=== PATIENT | female | born 1955 | race Caucasian/White ===

== ENCOUNTER 2018-03-14 13:47 | Inpatient (IN) ==
[2018-03-14] MEDS: Magnesium Oxide 400 MG TABLET PO SCH ×2 (15:58→19:29)
[2018-03-14] MEDS: Thiamine (B-1) 100 MG TABLET PO SCH (17:58)
[2018-03-14] MEDS: *HR* Enoxaparin 60 MG/0.6 ML SYRINGE SQ SCH (17:58)
[2018-03-14] MEDS ORDERED: *HR* Warfarin 3 MG TABLET PO SCH (18:00)
[2018-03-14] MEDS ORDERED: Warfarin perPT PO PRN (18:00)
[2018-03-14] MEDS: traMADol 50 MG TABLET PO PRN (19:30)
[2018-03-15] MEDS: *HR* Enoxaparin 60 MG/0.6 ML SYRINGE SQ SCH ×2 (06:32→16:46)
[2018-03-15 07:41] LABS: Basophils # 0.1 K/mcL (0.0-0.2); Basophils % 0.9 %; Eosinophils # 0.2 K/mcL (0.0-0.6); Eosinophils % 3.1 %; Hematocrit 30.5 % (35.3-44.9); Hemoglobin 9.8 g/dL (11.5-15.4); Immature Granulocytes % 0.6 % (0-4); Lymphocytes # 1.8 K/mcL (0.6-4.6); Lymphocytes % 27.5 %; Mean Corpuscular HGB Conc 32.1 g/dL (31.6-35.5); Mean Corpuscular Hemoglobin 29.9 pg (28.0-33.3); Mean Platelet Volume 10.9 fL (9.4-12.4); Monocytes # 0.7 K/mcL (0.0-1.3); Monocytes % 10.6 %; Neutrophils # 3.7 K/mcL (1.6-8.9); Platelet Count 254 K/mcL (140-400); Red Blood Count 3.28 M/mcL (3.82-4.97); Red Cell Distribution Width 15.6 % (11.5-14.5); Segmented Neutrophils % 57.3 %
[2018-03-15 07:43] LABS: INR 1.3; Prothrombin Time 14.4 Seconds (9.4-12.1)
[2018-03-15 07:55] LABS: Alanine Aminotransferase 20 Units/L (7-52); Albumin 2.6 g/dL (3.5-5.7); Albumin/Globulin Ratio 1.2 (1.1-2.2); Alkaline Phosphatase 72 Units/L (34-104); Aspartate Amino Transferase 22 Units/L (13-39); BUN/Creatinine Ratio 15 (6-26); Bilirubin,Total 0.4 mg/dL (0.3-1.0); Blood Urea Nitrogen 9 mg/dL (8-23); Calcium 8.4 mg/dL (8.6-10.3); Carbon Dioxide 26 mEq/L (23-29); Chloride 108 mEq/L (98-107); Globulin 2.2 g/dL (2.4-3.5); Glucose 81 mg/dL (70-105); Osmolality,Calculated 290 (280-300); Potassium 3.6 mEq/L (3.5-5.1); Sodium 141 mEq/L (136-145); Total Protein 4.8 g/dL (6.4-8.9); eGFR For African Americans > 60 (> 60); eGFR For Non-African Americans > 60 (> 60)
[2018-03-15] MEDS: Lactulose Oral Soln 20 GM/30 ML UDC PO SCH (09:52)
[2018-03-15] MEDS: Nicotine 21 MG PATCH.TD24 TD SCH (09:52)
[2018-03-15] MEDS: Magnesium Oxide 400 MG TABLET PO SCH ×3 (09:53→19:31)
[2018-03-15] MEDS: Cholecalciferol (D-3) 1,000 UNIT TABLET PO SCH (09:53)
[2018-03-15] MEDS: traMADol 50 MG TABLET PO PRN ×2 (09:55→19:31)
--- NOTE | 2018-03-15 10:52 | Internal Med History&Physical ---
Date of Encounter: 03/15/18 Time of Encounter: 10:50 Assessment and Plan (1) COPD (chronic obstructive pulmonary disease) Current visit: Yes Status: Chronic No acute issues. Patient denies any dyspnea, chest discomforts or productive cough. Resp effort is relaxed. Afebrile. Will continue on current meds and bronchodialators. Coninue with PT/OT Qualifiers: COPD type: unspecified COPD Qualified Code(s): J44.9 - Chronic obstructive pulmonary disease, unspecified (2) Hypertension Current visit: No Status: Chronic Vital signs are stable. We will continue with current medications Qualifiers: Hypertension type: unspecified Qualified Code(s): I10 - Essential (primary ) hypertension (3) Altered mental status Current visit: No Status: Acute Patient is oriented and appropriate with conversation. Patient appears relaxed. Vital signs stable. No signs of alcohol withdrawal and continues on scheduled Librium. Patient to continue with physical therapy. Qualifiers: Altered mental status type: delirium Qualified Code(s): R41.0 - Disorientation, unspecified (4) NSTEMI (non-ST elevated myocardial infarction) Current visit: No Status: Acute Patient denies any chest discomforts or palpitations. Vital signs stable. We will continue with current medications. (5) LV (left ventricular) mural thrombus Current visit: No Status: Acute No acute issues. Patient continues with Coumadin, although INR is 1.3. Patient currently on weight-based Lovenox for bridging until Coumadin is therapeutic. Pharmacy to dose Coumadin. (6) CHF (congestive heart failure) Current visit: No Status: Acute No acute issues. Patient denies any dyspnea, palpitations or chest discomforts. No edema. We will continue with current medications. Qualifiers: Heart failure type: systolic Heart failure chronicity: unspecified Qualified Code(s): I50.20 - Unspecified systolic (congestive) heart failure Internal Medicine - H&P: HPI Admitted From: Intrahospital Transfer Plans for Post Hospital Care: Home History of present illness: Ms. Arrieta is a 63 year old female with past medical history of chronic alcoholism, hypertension, GERD, and recent hospitalization for electrolyte abnormalities and failure to thrive who presented to [facility] on 02/20/2018 for altered mental status. Patient was found down from a fall at home by her daughter. Patient has a history of poor medical compliance. Patient presented very confused and lethargic. She was intubated at time of admission for airway protection and for respiratory failure related to COPD/ pneumonia. Patient was also treated for suspected aspiration pneumonia and completed a 1 week course of Zosyn. She was extubated without difficulty. Diagnosed with STEMI on admission and was s/p left heart catheterization without stent placement, but she was found to have left ventricular thrombosis and was anticoagulated with Coumadin and Arixtra. However this was discontinued due to acute blood loss anemia and patient having to be transfused a total of 5 units of packed red blood cells. Upper endoscopy and colonoscopy did not demonstrate any source of active bleeding. She was started on Coumadin and bridged with heparin. She is heparin was later changed to Lovenox to continue bridging with Coumadin. [facility] to continue Lovenox Coumadin bridge to therapeutic INR is achieved. Past Med Surg Social Fam HX - Past Medical History Medical history: COPD, GERD, hyperlipidemia, hypertension, migraine Psychiatric history: anxiety, depression, other - Past Surgical History Surgical History: - Social History Smoking Status: Current every day smoker Smokeless Tobacco Status: No Alcohol use: heavy Drug use: none - Family History Mother Living Status: Hx Family Cardiac Disorders: Yes Hx Family Endocrine Disorder: Yes (uncontrolled DM) Father Living Status: Hx Family Cardiac Disorders: Yes Hx Family GI Disorders: Yes Internal Medicine - H&P: Meds Atorvastatin [Lipitor] 80 mg PO HS 11/26/17 [History] Omeprazole [PriLOSEC] 20 mg PO DAILY 11/26/17 [History] Phos-NaK [Neutra-Phos] 2 each PO BID #120 powd.pack 11/30/17 [Rx] Potassium Chloride 20 meq PO BID #60 tab.er.prt 11/30/17 [Rx] Sodium Bicarbonate 650 mg PO TID #180 tablet 11/30/17 [Rx] Lactulose 15 ml PO DAILY 02/20/18 [History] Magnesium Oxide [Mag-Ox] 400 mg PO TID 02/20/18 [History] Carvedilol [Coreg] 6.25 mg PO BIDWM tablet 03/13/18 [Rx] Chlordiazepoxide [Librium] 10 mg PO BID 5 Days #10 capsule 03/13/18 [Rx] Cholecalciferol (D-3) [Vitamin D] 1,000 unit PO DAILY tablet 03/13/18 [Rx] Enoxaparin [Lovenox] 60 mg SQ Q12HR syringe 03/13/18 [Rx] Ipratropium/Albuterol Neb [Duoneb] 3 ml IH [id number] inhsol 03/13/18 [Rx] Nicotine Patch [Nicoderm] 21 mg TD DAILY patch.td24 03/13/18 [Rx] Thiamine (B-1) [Vitamin B-1] 100 mg PO 1800 tablet 03/13/18 [Rx] Tramadol HCl [Ultram] 50 mg PO Q6-8H PRN 2 Days #8 tablet 03/13/18 [Rx] Warfarin perPT [Coumadin perPT] 1 each PO DAILY@1800 PRN each 03/13/18 [Rx] 3 Allergy/AdvReac Type Severity Reaction Status Date / Time No Known Allergies Allergy Verified 02/20/18 18:06 All Systems PM: A 10-system review of systems was performed and is negative for pertinent findings except as documented above in the HPI. - Constitutional Constitutional: no chills, no fever(s), no night sweats - EENT Eyes: no change in vision, no discharge, no pain, no photophobia Ears: no ear discharge, no ear pain, no tinnitus Nose, mouth and throat: no dysphagia, no nasal discharge, no neck pain, no sore throat - Cardiovascular Cardiovascular ROS IM: no chest pain, no diaphoresis, no dyspnea, no lightheadedness, no palpitations, no syncope - Respiratory Respiratory: no cough, no dyspnea, no wheezing, no excessive phlegm production - Gastrointestinal Gastrointestinal: no abdominal pain, no diarrhea, no hematemesis, no hematochezia, no melena, no nausea, no vomiting - Genitourinary Genitourinary: no change in urinary stream, no dysuria, no flank pain, no hematuria - Musculoskeletal Musculoskeletal ROS IM: no numbness, no tingling - Integumentary Integumentary IM: no rash, no unusual bruising - Neurological Neurological ROS: no confusion, no convulsions, no focal weakness, no numbness, no tingling, no tremor(s) - Hematologic/Lymphatic Hematologic/Lymphatic: no easy bruising - Constitutional Vitals: Temp Pulse Resp BP Pulse Ox 98.2 F 69 16 147/78 96 03/15/18 07:02 03/15/18 07:02 03/15/18 07:02 03/15/18 07:02 03/15/18 07:02 General appearance: Present: A&O X 3, pleasant - Head Head exam: Present: atraumatic, normocephalic - Eye Eye exam: Present: PERRL, conjuntiva pink, sclera anicteric Pupils: Present: PERRL - Neck Neck exam general surgery: Present: supple, trachea midline. Absent: lymphadenopathy - Respiratory Respiratory exam: Present: CTAB. Absent: accessory muscle use, rales, rhonchi, wheezes Additional comments: Diminished breath sounds to the bases, but otherwise she has been CTA. Resp effort appears relaxed. - Cardiovascular Cardiovascular exam: Present: RRR, +S1, +S2. Absent: diastolic murmur, gallop, rubs, systolic murmur - GI/Abdominal GI/Abdominal exam: Present: normal bowel sounds, soft, no peritoneal signs. Absent: distended, tenderness - Extremities Exam Extremities exam: Present: warm, radial pulses palpable and symmetrical. Absent : calf tenderness, cyanotic, pedal edema - Neurological Exam Neurological exam: Present: CN II-XII intact, oriented X3, no focal deficits. Absent: pronater drift, facial droop, speech deficit - Skin Skin exam: Present: dry, intact Internal Med - H&P Results - Labs CBC & Chem 7: 03/15/18 06:10 03/15/18 06:10 Labs: Short CBC 03/15/18 Range/Units 06:10 WBC 6.4 (4.3-11.1) K/mcL Hgb 9.8 L (11.5-15.4) g/dL Hct 30.5 L (35.3-44.9) % Plt Count 254 (140-400) K/mcL Neutrophils # 3.7 (1.6-8.9) K/mcL BMP 03/15/18 06:10 Sodium 141 Potassium 3.6 Chloride 108 H Carbon Dioxide 26 BUN 9 Creatinine 0.59 L Glucose 81 Calcium 8.4 L Liver Function 03/15/18 Range/Units 06:10 Total Bilirubin 0.4 (0.3-1.0) mg/dL AST 22 (13-39) Units/L ALT 20 (7-52) Units/L Alkaline Phosphatase 72 (34-104) Units/L Albumin 2.6 L (3.5-5.7) g/dL
[2018-03-15] MEDS: Thiamine (B-1) 100 MG TABLET PO SCH (16:47)
[2018-03-15] MEDS ORDERED: *HR* Warfarin 4 MG TABLET PO SCH (18:00)
[2018-03-16] MEDS: *HR* Enoxaparin 60 MG/0.6 ML SYRINGE SQ SCH ×2 (05:34→17:18)
[2018-03-16 06:25] LABS: INR 1.6; Prothrombin Time 16.9 Seconds (9.4-12.1)
[2018-03-16] MEDS: Magnesium Oxide 400 MG TABLET PO SCH ×3 (08:55→21:19)
[2018-03-16] MEDS: Lactulose Oral Soln 20 GM/30 ML UDC PO SCH (08:55)
[2018-03-16] MEDS: Cholecalciferol (D-3) 1,000 UNIT TABLET PO SCH (08:55)
[2018-03-16] MEDS: Nicotine 21 MG PATCH.TD24 TD SCH (08:56)
--- NOTE | 2018-03-16 10:17 | Internal Med Progress Note ---
Date of Encounter: 03/16/18 Time of Encounter: 10:15 - Assessment and plan (1) COPD (chronic obstructive pulmonary disease) Current Visit: Yes Status: Chronic Assessment and plan: baseline breathing no acute issues at the present time stable Qualifiers: COPD type: unspecified COPD Qualified Code(s): J44.9 - Chronic obstructive pulmonary disease, unspecified (2) Hypertension Current Visit: No Status: Chronic Assessment and plan: No new change stable Continue present management Qualifiers: Hypertension type: unspecified Qualified Code(s): I10 - Essential (primary ) hypertension (3) NSTEMI (non-ST elevated myocardial infarction) Current Visit: No Status: Acute Assessment and plan: No chest pain at the present time She is on meds stable no chest pain or SOB . She still feels weak (4) Mural thrombus of heart Current Visit: No Status: Acute Assessment and plan: On warfarin and bridge therapy INR still low give increase dose of 7.5 mg today and then 4.5 mg every day on Lovenox causing some pain on injection site (5) CHF (congestive heart failure) Current Visit: No Status: Acute Assessment and plan: on beta edre and other meds she seems to be stable at the present time watch for slat , increase ambulation Stable as far symptoms of SOB is concerned Qualifiers: Heart failure type: systolic Heart failure chronicity: unspecified Qualified Code(s): I50.20 - Unspecified systolic (congestive) heart failure - Subjective Interval history: pt seen in dinning room no acute issues talkative and alert oriented . some complains on pain on his left abdomen site for injections . She denies any chest pain SOB cough fever or chills no weakness in her arms or legs she is using wheel chair as she feels weak . No bleeding - Constitutional Vitals: Temp Pulse Resp BP Pulse Ox 98.2 F 79 18 124/72 97 03/16/18 08:13 03/16/18 08:13 03/16/18 08:13 03/16/18 08:13 03/16/18 08:13 General appearance: Present: A&O X 3, pleasant, no acute distress - Head Head exam: Present: atraumatic - Eye Eye exam: Present: EOMI, PERRL. Absent: periorbital swelling, scleral icterus, conjuntiva pink, sclera anicteric - Neck Neck exam general surgery: Present: full ROM, supple. Absent: tenderness, nuchal rigidity - Respiratory Respiratory exam: Present: CTAB. Absent: accessory muscle use, chest wall tenderness, decreased breath sounds, respiratory distress, rhonchi, stridor, wheezes, tachypnea - Cardiovascular Cardiovascular exam: Present: RRR, +S1. Absent: diastolic murmur, irregular rhythm, JVD, systolic murmur - GI/Abdominal GI/Abdominal exam: Present: normal bowel sounds, soft. Absent: distended, firm , guarding, mass, pulsatile mass, rebound, rigid Additional comments: mild injection site bruises and pain - Extremities Exam Extremities exam: Present: full ROM. Absent: mottling, tenderness, warm - Neurological Exam Neurological exam: Present: CN II-XII intact, oriented X3, strengths equal and symetr throughout. Absent: no focal deficits, pronater drift, facial droop, speech deficit Internal Medicine: Result - Labs CBC & Chem 7: 03/15/18 06:10 03/15/18 06:10 - ABG Interpretation ABG results: PT/INR, D-dimer PT 16.9 Seconds (9.4-12.1) H 03/16/18 05:50 Consult Discharge Plan - Plan Referrals: Chiquita Colunga, [employer] [Primary Care Provider] -
[2018-03-16] MEDS: Thiamine (B-1) 100 MG TABLET PO SCH (17:17)
[2018-03-16] MEDS ORDERED: *HR* Warfarin 7.5 MG TABLET PO ONE (18:00)
[2018-03-16] MEDS: traMADol 50 MG TABLET PO PRN (21:18)
[2018-03-17] MEDS: *HR* Enoxaparin 60 MG/0.6 ML SYRINGE SQ SCH ×2 (04:25→16:59)
[2018-03-17 05:05] LABS: Prothrombin Time 21.8 Seconds (9.4-12.1)
[2018-03-17] MEDS: Cholecalciferol (D-3) 1,000 UNIT TABLET PO SCH (08:12)
[2018-03-17] MEDS: Magnesium Oxide 400 MG TABLET PO SCH ×3 (08:12→19:30)
[2018-03-17] MEDS: Lactulose Oral Soln 20 GM/30 ML UDC PO SCH (08:13)
[2018-03-17] MEDS: Nicotine 21 MG PATCH.TD24 TD SCH (08:13)
--- NOTE | 2018-03-17 09:35 | Internal Med Progress Note ---
Date of Encounter: 03/17/18 Time of Encounter: 09:33 - Assessment and plan (1) COPD (chronic obstructive pulmonary disease) Current Visit: Yes Status: Chronic Assessment and plan: sable no new issues not using any oxygen at the present . Continue to follow Qualifiers: COPD type: unspecified COPD Qualified Code(s): J44.9 - Chronic obstructive pulmonary disease, unspecified (2) Hypertension Current Visit: No Status: Chronic Assessment and plan: stable no new change Qualifiers: Hypertension type: unspecified Qualified Code(s): I10 - Essential (primary ) hypertension (3) NSTEMI (non-ST elevated myocardial infarction) Current Visit: No Status: Acute Assessment and plan: stable no chest pain on meds (4) Mural thrombus of heart Current Visit: No Status: Acute Assessment and plan: INR is 2 today bridge therapy at the present time adjust dose INR tomorrow and then d/c Lovenox Start 4.5 mg Warfarin q evening Also order mg levels she iis on Mgoxide (5) CHF (congestive heart failure) Current Visit: No Status: Acute Assessment and plan: stable CHF she is able to lay down flat . continue to monitor Qualifiers: Heart failure type: systolic Heart failure chronicity: unspecified Qualified Code(s): I50.20 - Unspecified systolic (congestive) heart failure - Subjective Interval history: pt no new issues today feels well no chest pain no SOB or bleeding or any other issues she feels good still weak and difficulty in getting up - Constitutional Vitals: Temp Pulse Resp BP Pulse Ox 98.4 F 74 16 121/68 95 03/17/18 07:24 03/17/18 07:24 03/17/18 07:24 03/17/18 07:24 03/17/18 07:24 General appearance: Present: A&O X 3, pleasant, no acute distress - Head Head exam: Present: atraumatic - Eye Eye exam: Present: EOMI, PERRL. Absent: scleral icterus, conjuntiva pink, sclera anicteric - Neck Neck exam general surgery: Present: supple. Absent: tenderness, nuchal rigidity - Respiratory Respiratory exam: Present: CTAB. Absent: accessory muscle use, chest wall tenderness, rales, respiratory distress, rhonchi, stridor, tachypnea - Cardiovascular Cardiovascular exam: Present: RRR, +S1, +S2. Absent: gallop, irregular rhythm, JVD, systolic murmur, tachycardia - GI/Abdominal GI/Abdominal exam: Present: normal bowel sounds, pulsatile mass, soft. Absent: firm, rebound, rigid - Extremities Exam Extremities exam: Present: pedal edema Additional comments: minimal both side more on the right then left - Neurological Exam Neurological exam: Present: CN II-XII intact, oriented X3, reflexes normal, strengths equal and symetr throughout. Absent: facial droop, speech deficit Internal Medicine: Result - Labs CBC & Chem 7: 03/15/18 06:10 03/15/18 06:10 - ABG Interpretation ABG results: PT/INR, D-dimer PT 21.8 Seconds (9.4-12.1) H 03/17/18 04:38 Consult Discharge Plan - Plan Referrals: Chiquita Colunga, [employer] [Primary Care Provider] -
[2018-03-17] MEDS: Thiamine (B-1) 100 MG TABLET PO SCH (16:58)
[2018-03-17] MEDS ORDERED: *HR* Warfarin 4 MG TABLET PO SCH (18:00)
[2018-03-17] MEDS: traMADol 50 MG TABLET PO PRN (19:30)
[2018-03-18] MEDS: *HR* Enoxaparin 60 MG/0.6 ML SYRINGE SQ SCH (05:11)
[2018-03-18 08:59] LABS: Prothrombin Time 32.6 Seconds (9.4-12.1)
--- NOTE | 2018-03-18 09:44 | Internal Med Progress Note ---
Date of Encounter: 03/18/18 Time of Encounter: 09:42 - Assessment and plan (1) COPD (chronic obstructive pulmonary disease) Current Visit: Yes Status: Chronic Assessment and plan: stable no new changes continue to watch Qualifiers: COPD type: unspecified COPD Qualified Code(s): J44.9 - Chronic obstructive pulmonary disease, unspecified (2) Hypertension Current Visit: No Status: Chronic Assessment and plan: stable no new change in meds continue to follow Qualifiers: Hypertension type: unspecified Qualified Code(s): I10 - Essential (primary ) hypertension (3) NSTEMI (non-ST elevated myocardial infarction) Current Visit: No Status: Acute Assessment and plan: stable no chest pain getting her rehab now still somewhat weak (4) Mural thrombus of heart Current Visit: No Status: Acute Assessment and plan: INR is 3 today . stop her Lovenox and decrease her Warfarin to 4 again and followup INR clinically stable (5) CHF (congestive heart failure) Current Visit: No Status: Acute Assessment and plan: stable no new change she is able to lay down flat no JVD Qualifiers: Heart failure type: systolic Heart failure chronicity: unspecified Qualified Code(s): I50.20 - Unspecified systolic (congestive) heart failure (6) Hypomagnesemia Current Visit: No Status: Acute Assessment and plan: Level are still low she has been on oral meds . Give one time IV 2 gm and followup Labs stable overall - Subjective Interval history: pt no new issues today feels well no chest pain no SOB or bleeding or any other issues she feels good still weak and difficulty in getting up Still has complains of injection site pain and bumps .No other complains - Constitutional Vitals: Temp Pulse Resp BP Pulse Ox 98.2 F 65 12 137/62 96 03/18/18 08:06 03/18/18 08:06 03/18/18 08:06 03/18/18 08:06 03/18/18 08:06 General appearance: Present: A&O X 3, pleasant, no acute distress - Head Head exam: Present: atraumatic - Eye Eye exam: Present: EOMI, PERRL. Absent: scleral icterus, conjuntiva pink, sclera anicteric - Neck Neck exam general surgery: Present: full ROM, supple. Absent: tenderness, nuchal rigidity - Respiratory Respiratory exam: Present: CTAB. Absent: chest wall tenderness, respiratory distress, rhonchi, stridor, wheezes, tachypnea - Cardiovascular Cardiovascular exam: Present: RRR, +S1, +S2. Absent: gallop, irregular rhythm, JVD, systolic murmur, tachycardia - GI/Abdominal GI/Abdominal exam: Present: normal bowel sounds, soft, tenderness. Absent: distended, firm, guarding, pulsatile mass, rebound, rigid Additional comments: on the injection site on left - Extremities Exam Extremities exam: Absent: pedal edema, tenderness - Neurological Exam Neurological exam: Present: CN II-XII intact, oriented X3, reflexes normal, no focal deficits. Absent: altered, pronater drift, facial droop, speech deficit Internal Medicine: Result - Labs CBC & Chem 7: 03/15/18 06:10 03/15/18 06:10 - ABG Interpretation ABG results: PT/INR, D-dimer PT 21.8 Seconds (9.4-12.1) H 03/17/18 04:38 Consult Discharge Plan - Plan Referrals: Chiquita Colunga, [employer] [Primary Care Provider] -
[2018-03-18] MEDS: Cholecalciferol (D-3) 1,000 UNIT TABLET PO SCH (10:27)
[2018-03-18] MEDS: traMADol 50 MG TABLET PO PRN ×3 (10:27→22:08)
[2018-03-18] MEDS: Magnesium Oxide 400 MG TABLET PO SCH ×3 (10:27→22:07)
[2018-03-18] MEDS: Lactulose Oral Soln 20 GM/30 ML UDC PO SCH (10:28)
[2018-03-18] MEDS: Nicotine 21 MG PATCH.TD24 TD SCH (10:29)
[2018-03-18] MEDS ORDERED: *HR* OxyCODONE Immed Rel 5 MG TABLET PO ONE (17:36)
[2018-03-18] MEDS: Thiamine (B-1) 100 MG TABLET PO SCH (18:48)
[2018-03-18] MEDS: *HR* Warfarin 2 MG TABLET PO SCH (22:05)
[2018-03-19 05:45] LABS: INR 1.9; Prothrombin Time 20.4 Seconds (9.4-12.1)
[2018-03-19] MEDS: Cholecalciferol (D-3) 1,000 UNIT TABLET PO SCH (09:50)
[2018-03-19] MEDS: Nicotine 21 MG PATCH.TD24 TD SCH (09:50)
[2018-03-19] MEDS: Magnesium Oxide 400 MG TABLET PO SCH ×3 (09:51→21:55)
[2018-03-19] MEDS: traMADol 50 MG TABLET PO PRN ×2 (09:51→21:55)
[2018-03-19] MEDS: Lactulose Oral Soln 20 GM/30 ML UDC PO SCH (09:51)
--- NOTE | 2018-03-19 10:19 | Internal Med Progress Note ---
Date of Encounter: 03/19/18 Time of Encounter: 10:17 - Assessment and plan (1) COPD (chronic obstructive pulmonary disease) Current Visit: Yes Status: Chronic Assessment and plan: Clinically stable. We will continue home regimen and follow. Qualifiers: COPD type: unspecified COPD Qualified Code(s): J44.9 - Chronic obstructive pulmonary disease, unspecified (2) Acute blood loss anemia Current Visit: No Status: Acute Assessment and plan: Clinically stable. We will continue home regimen and follow. (3) DVT prophylaxis Current Visit: No Status: Acute Assessment and plan: We will continue her on Coumadin. However, she is borderline subtherapeutic, today. Will resume Coumadin and may need enoxaparin. Since she has had hematoma from same will avoid today, if possible. Reviewed negative CT and etiology of abdominal pain with her. (4) Hypomagnesemia Current Visit: No Status: Acute Assessment and plan: Resolved. Will follow in the future. (5) Hypertension Current Visit: No Status: Chronic Assessment and plan: Clinically stable. We will continue home regimen and follow. Qualifiers: Hypertension type: unspecified Qualified Code(s): I10 - Essential (primary ) hypertension (6) Tobacco dependence Current Visit: No Status: Chronic Assessment and plan: Doing fine currently. Will need to encourage patient not to smoke, upon discharge. (7) Pruritus Current Visit: Yes Status: Acute Assessment and plan: Etiology is undetermined. There is no sign of liver failure. We will follow clinically and use Benadryl, when necessary. - Subjective Interval history: Patient notes itching and scratching but is unsure as to why. This is been going on for several days. Denies rash or exposure. She is not concerned about abdominal pain and dose it is just from "the shots." Patient has no complaint of chest discomfort, dyspnea, orthopnea, palpitations, nausea or vomiting, constipation or diarrhea, other changes in bowel habits, difficulty with urination, rash or itching, or other new complaints, except as mentioned above. Review of systems is otherwise negative. - Constitutional Vitals: Temp Pulse Resp BP Pulse Ox 97.9 F 66 16 126/60 93 03/19/18 06:42 03/19/18 06:42 03/19/18 06:42 03/19/18 06:42 03/19/18 06:42 General appearance: Present: pleasant Exam: Examination: (Except as mentioned above): General: In no apparent distress. Alert and oriented 3. Nondiaphoretic. Head: Atraumatic and normocephalic. Respiratory: No use of accessory muscles. Lungs are clear throughout. Normal airflow. Cardiovascular: Regular rate and rhythm without murmur appreciated. Abdomen: Bowel sounds are normal. No hepatosplenomegaly mass or tenderness except hematoma/ecchymosis as before. Obese and therefore difficult to palpate deeply. Patient is examined upright in chair and this also limits exam. Extremities: No cyanosis clubbing or edema. Skin: Warm and non-diaphoretic with no new lesions noted. Internal Medicine: Result - Labs CBC & Chem 7: 03/15/18 06:10 03/15/18 06:10 - ABG Interpretation ABG results: PT/INR, D-dimer PT 20.4 Seconds (9.4-12.1) H 03/19/18 05:10 - Impressions Impressions Abdomen/Pelvis CT 03/18/18 17:34 IMPRESSION: No acute intra- abdominal or intrapelvic findings to account for patient's pain. Rounded densities within the subcutaneous fat of the anterior abdominal wall as well as a few foci of gas also noted in the subcutaneous fat. Findings may be related to injection of medication. More prominent rounded densities within the subcutaneous fat left anterior abdominal wall, new. These contain fluid fluid levels and may represent small hematoma. Stranding again noted right groin with rounded increased densities. These appear increased in size since the previous exam. While findings may be related to adenopathy, degree of increase in short interval of time suggests that this may also represent hematoma. If there is history of procedure in the right groin or concern for vascular injury recommend further evaluation with CT contrast enhanced study. Simple appearing 5.1 x 4.6 cm left ovarian cyst, not significantly changed. Recommend further evaluation with nonemergent ultrasound and surgical consultation. D/ / Tayler Liang MD / Tayler Liang MD Interpreting Provider: Tayler Liang MD Consult Discharge Plan - Plan Referrals: Chiquita Colunga, [employer] [Primary Care Provider] -
[2018-03-19] MEDS: *HR* Warfarin 2 MG TABLET PO SCH (17:44)
[2018-03-19] MEDS: Thiamine (B-1) 100 MG TABLET PO SCH (17:45)
[2018-03-20 07:26] LABS: INR 1.5; Prothrombin Time 16.6 Seconds (9.4-12.1)
[2018-03-20] MEDS: Cholecalciferol (D-3) 1,000 UNIT TABLET PO SCH (08:58)
[2018-03-20] MEDS: traMADol 50 MG TABLET PO PRN ×2 (08:58→19:43)
[2018-03-20] MEDS: Lactulose Oral Soln 20 GM/30 ML UDC PO SCH (08:58)
[2018-03-20] MEDS: Nicotine 21 MG PATCH.TD24 TD SCH (08:59)
[2018-03-20] MEDS: Magnesium Oxide 400 MG TABLET PO SCH ×3 (08:59→19:43)
--- NOTE | 2018-03-20 10:26 | Internal Med Progress Note ---
Date of Encounter: 03/20/18 Time of Encounter: 10:20 - Assessment and plan (1) Physical deconditioning Current Visit: Yes Status: Acute Assessment and plan: Continue PT\OT. Will follow progress. (2) COPD (chronic obstructive pulmonary disease) Current Visit: Yes Status: Chronic Assessment and plan: Controlled. Continue inhaled meds. Qualifiers: COPD type: unspecified COPD Qualified Code(s): J44.9 - Chronic obstructive pulmonary disease, unspecified (3) Tobacco dependence Current Visit: Yes Status: Chronic Assessment and plan: Stable. Will educate plan for smoking cessation prior to discharge. (4) Hypertension Current Visit: Yes Status: Chronic Assessment and plan: Controlled with current medication. Monitor blood pressure. Qualifiers: Hypertension type: unspecified Qualified Code(s): I10 - Essential (primary ) hypertension (5) Acute blood loss anemia Current Visit: Yes Status: Acute Assessment and plan: CBC ordered today. Will follow for results. (6) Fatigue Current Visit: Yes Status: Acute Assessment and plan: CBC in BMP ordered. Will follow for results. Qualifiers: Fatigue type: unspecified Qualified Code(s): R53.83 - Other fatigue - Time Spent With Patient 25 - 35 minutes - Subjective Interval history: participating well with therapy. ambulating with walker. c/o fatigue, discussed ordering labwork due to recent anemia and transfusion. denies any pain, fever, chills, NVD, SOB or chest pain. - Constitutional Vitals: Temp Pulse Resp BP Pulse Ox 98.4 F 75 16 110/58 95 03/20/18 07:46 03/20/18 07:46 03/20/18 07:46 03/20/18 07:46 03/20/18 07:46 General appearance: Present: cooperative, A&O X 3, pleasant, no acute distress, underweight, answers questions appropriately - Head Head exam: Present: atraumatic, normocephalic - Eye Eye exam: Present: PERRL, conjuntiva pink, sclera anicteric Pupils: Present: PERRL - Neck Neck exam general surgery: Present: supple, trachea midline. Absent: lymphadenopathy - Respiratory Respiratory exam: Present: CTAB. Absent: accessory muscle use, rales, rhonchi, wheezes - Cardiovascular Cardiovascular exam: Present: RRR, +S1, +S2. Absent: diastolic murmur, gallop, rubs, systolic murmur - GI/Abdominal GI/Abdominal exam: Present: normal bowel sounds, soft, no peritoneal signs. Absent: distended, tenderness - Extremities Exam Extremities exam: Present: warm, radial pulses palpable and symmetrical. Absent : calf tenderness, cyanotic, pedal edema - Neurological Exam Neurological exam: Present: CN II-XII intact, oriented X3, no focal deficits. Absent: pronater drift, facial droop, speech deficit - Skin Skin exam: Present: dry, intact Internal Medicine: Result - Labs CBC & Chem 7: 03/15/18 06:10 03/15/18 06:10 - ABG Interpretation ABG results: PT/INR, D-dimer PT 16.6 Seconds (9.4-12.1) H 03/20/18 06:31 Consult Discharge Plan - Plan Referrals: Chiquita Colunga, REGIONAL DIRECTOR [Primary Care Provider] - Figueroa Sanchez [Partnered Physician] - 04/18/18 8:00 am
[2018-03-20 11:27] LABS: Basophils # 0.1 K/mcL (0.0-0.2); Basophils % 0.6 %; Eosinophils # 0.4 K/mcL (0.0-0.6); Eosinophils % 3.6 %; Hematocrit 32.4 % (35.3-44.9); Hemoglobin 10.3 g/dL (11.5-15.4); Immature Granulocytes % 1.1 % (0-4); Lymphocytes # 1.6 K/mcL (0.6-4.6); Lymphocytes % 15.8 %; Mean Corpuscular HGB Conc 31.8 g/dL (31.6-35.5); Mean Corpuscular Hemoglobin 30.2 pg (28.0-33.3); Mean Platelet Volume 10.5 fL (9.4-12.4); Monocytes # 0.9 K/mcL (0.0-1.3); Monocytes % 8.8 %; Platelet Count 233 K/mcL (140-400); Red Blood Count 3.41 M/mcL (3.82-4.97); Red Cell Distribution Width 15.9 % (11.5-14.5); Segmented Neutrophils % 70.1 %
[2018-03-20 11:33] LABS: Neutrophils # 6.9 K/mcL (1.6-8.9)
[2018-03-20 11:50] LABS: BUN/Creatinine Ratio 10 (6-26); Blood Urea Nitrogen 8 mg/dL (8-23); Calcium 8.7 mg/dL (8.6-10.3); Carbon Dioxide 28 mEq/L (23-29); Chloride 101 mEq/L (98-107); Glucose 92 mg/dL (70-105); Osmolality,Calculated 278 (280-300); Potassium 4.8 mEq/L (3.5-5.1); Sodium 135 mEq/L (136-145); eGFR For African Americans > 60 (> 60); eGFR For Non-African Americans > 60 (> 60)
[2018-03-20] MEDS: *HR* Warfarin 2 MG TABLET PO SCH (17:24)
[2018-03-20] MEDS: Thiamine (B-1) 100 MG TABLET PO SCH (17:24)
[2018-03-21 05:41] LABS: INR 1.5; Prothrombin Time 16.5 Seconds (9.4-12.1)
[2018-03-21] MEDS: traMADol 50 MG TABLET PO PRN ×2 (09:19→20:33)
--- NOTE | 2018-03-21 09:44 | Internal Med Progress Note ---
Date of Encounter: 03/21/18 Time of Encounter: 09:41 - Assessment and plan (1) COPD (chronic obstructive pulmonary disease) Current Visit: Yes Status: Chronic Assessment and plan: This seems to be stable, clinically. Will follow, given her symptoms which might be respiratory. Qualifiers: COPD type: unspecified COPD Qualified Code(s): J44.9 - Chronic obstructive pulmonary disease, unspecified (2) Acute blood loss anemia Current Visit: Yes Status: Acute Assessment and plan: Clinically stable. We will follow. (3) DVT prophylaxis Current Visit: No Status: Acute Assessment and plan: She remains subtherapeutic. I thought I gave a verbal order for Lovenox beginning yesterday. This was not done. This was resumed today. I explained patient, as above. We will continue on Coumadin which was held over the weekend. (4) Hypomagnesemia Current Visit: No Status: Acute Assessment and plan: Resolved. Will follow in the future. (5) Hypertension Current Visit: Yes Status: Chronic Assessment and plan: Clinically stable. We will continue home regimen and follow. Qualifiers: Hypertension type: unspecified Qualified Code(s): I10 - Essential (primary ) hypertension (6) Tobacco dependence Current Visit: Yes Status: Chronic Assessment and plan: Doing fine currently. Will need to encourage patient not to smoke, upon discharge. However, nursing notes that she ask therapy staff for a trip outside for a cigarette, yesterday. (7) Pruritus Current Visit: Yes Status: Acute Assessment and plan: Improved? We will continue to follow. - Subjective Interval history: Patient examined upright in chair, during therapy. She states she is not feeling well. She has had some cough in her throat is bothering her this morning. I explained to her that she needs to have Lovenox even though she does not want this because of abdominal pain. I explained the prophylaxis for blood clot in her lung, etc. Patient has no complaint of chest discomfort, dyspnea, orthopnea, palpitations, nausea or vomiting, constipation or diarrhea, other changes in bowel habits, difficulty with urination, rash or itching, or other new complaints, except as mentioned above. Review of systems is otherwise negative. - Constitutional Vitals: Temp Pulse Resp BP Pulse Ox 98.4 F 78 16 97/55 97 03/20/18 19:14 03/20/18 19:14 03/20/18 19:14 03/20/18 19:14 03/20/18 19:14 General appearance: Present: cooperative, pleasant, underweight, answers questions appropriately Exam: See comments above. Examination: (Except as mentioned above): General: In no apparent distress. Alert and oriented 3. Nondiaphoretic. Head: Atraumatic and normocephalic. Throat: Without dementia or oral lesion or abnormality. Dentition is also unremarkable. Neck: Supple without thyromegaly or adenopathy. Respiratory: No use of accessory muscles. Lungs are clear throughout. Normal airflow. Cardiovascular: Regular rate and rhythm without murmur appreciated. Abdomen: Bowel sounds are normal. No hepatosplenomegaly mass or tenderness appreciated. Obese and therefore difficult to palpate deeply.Patient is examined upright in chair and this also limits exam. Extremities: No cyanosis clubbing or edema. Skin: Warm and non-diaphoretic with no new lesions noted. Internal Medicine: Result - Labs CBC & Chem 7: 03/20/18 11:19 03/20/18 11:19 Labs: Short CBC 03/20/18 Range/Units 11:19 WBC 9.9 D (4.3-11.1) K/mcL Hgb 10.3 L (11.5-15.4) g/dL Hct 32.4 L (35.3-44.9) % Plt Count 233 (140-400) K/mcL Neutrophils # 6.9 (1.6-8.9) K/mcL BMP 03/20/18 11:19 Sodium 135 L Potassium 4.8 Chloride 101 Carbon Dioxide 28 BUN 8 Creatinine 0.77 Glucose 92 Calcium 8.7 - ABG Interpretation ABG results: PT/INR, D-dimer PT 16.5 Seconds (9.4-12.1) H 03/21/18 04:45 - Impressions Impressions Videofluoroscopic Swallow 03/20/18 11:46 IMPRESSION: Swallowing mechanism grossly within normal limits without evidence of aspiration. Please see separate speech pathology report for full discussion of findings and recommendations. D/ / Yadiel Acevedo MD / Yadiel Acevedo MD Interpreting Provider: Yadiel Acevedo MD Consult Discharge Plan - Plan Referrals: Chiquita Colunga, ALEXIS [Primary Care Provider] - Figueroa Sanchez [Partnered Physician] - 04/18/18 8:00 am
[2018-03-21] MEDS: Magnesium Oxide 400 MG TABLET PO SCH ×3 (09:59→20:32)
[2018-03-21] MEDS: Lactulose Oral Soln 20 GM/30 ML UDC PO SCH (10:00)
[2018-03-21] MEDS: Nicotine 21 MG PATCH.TD24 TD SCH (10:00)
[2018-03-21] MEDS: Cholecalciferol (D-3) 1,000 UNIT TABLET PO SCH (10:00)
[2018-03-21] MEDS: *HR* Enoxaparin 60 MG/0.6 ML SYRINGE SQ SCH (17:18)
[2018-03-21] MEDS: Thiamine (B-1) 100 MG TABLET PO SCH (17:18)
[2018-03-21] MEDS ORDERED: Warfarin perPT PO SCH (18:00)
[2018-03-21] MEDS ORDERED: *HR* Warfarin 4 MG TABLET PO ONE (18:00)
[2018-03-21 18:58] LABS: Basophils # 0.1 K/mcL (0.0-0.2); Basophils % 0.6 %; Eosinophils # 0.5 K/mcL (0.0-0.6); Eosinophils % 4.5 %; Hematocrit 31.1 % (35.3-44.9); Immature Granulocytes % 0.7 % (0-4); Lymphocytes # 1.9 K/mcL (0.6-4.6); Mean Corpuscular HGB Conc 32.2 g/dL (31.6-35.5); Mean Corpuscular Volume 93.4 fL (83.0-100.0); Mean Platelet Volume 10.1 fL (9.4-12.4); Monocytes # 0.9 K/mcL (0.0-1.3); Monocytes % 8.8 %; Neutrophils # 6.8 K/mcL (1.6-8.9); Platelet Count 228 K/mcL (140-400); Red Blood Count 3.33 M/mcL (3.82-4.97); Red Cell Distribution Width 15.7 % (11.5-14.5); Segmented Neutrophils % 66.4 %
[2018-03-21 19:16] LABS: BUN/Creatinine Ratio 13 (6-26); Blood Urea Nitrogen 9 mg/dL (8-23); Carbon Dioxide 25 mEq/L (23-29); Chloride 102 mEq/L (98-107); Glucose 101 mg/dL (70-105); Osmolality,Calculated 275 (280-300); Potassium 4.5 mEq/L (3.5-5.1); Sodium 133 mEq/L (136-145); eGFR For African Americans > 60 (> 60); eGFR For Non-African Americans > 60 (> 60)
[2018-03-22] MEDS: *HR* Enoxaparin 60 MG/0.6 ML SYRINGE SQ SCH ×3 (00:25→23:00)
[2018-03-22] MEDS ORDERED: *HR* Enoxaparin 60 MG/0.6 ML SYRINGE SQ SCH (06:00)
[2018-03-22] MEDS: Lactulose Oral Soln 20 GM/30 ML UDC PO SCH (08:33)
[2018-03-22] MEDS: Nicotine 21 MG PATCH.TD24 TD SCH (08:33)
[2018-03-22] MEDS: Cholecalciferol (D-3) 1,000 UNIT TABLET PO SCH (08:33)
[2018-03-22] MEDS: Magnesium Oxide 400 MG TABLET PO SCH ×3 (08:34→20:10)
[2018-03-22 08:38] LABS: INR 1.6; Prothrombin Time 17.1 Seconds (9.4-12.1)
--- NOTE | 2018-03-22 10:44 | Internal Med Progress Note ---
Date of Encounter: 03/22/18 Time of Encounter: 10:42 - Assessment and plan (1) Chest pain Current Visit: Yes Status: Acute Assessment and plan: Patient reportedly had an episode of chest pain yesterday early evening which per nursing was described as substernal. Patient is a poor historian due to dementia element. Patient has had serial troponins and EKG obtain. Troponins have been negative. Patient's first EKG showed inverted T waves in multiple leads. Patient has had a recent history of a non-STEMI ND during her hospitalization in early February. Patient had a cardiac catheter done by cardiology with the showmoderate disease to LAD. Patient also at that time diagnosed with a left ventricular thrombus. Patient currently appears relaxed and denies any chest discomforts or palpitations. Repeat EKG continued to show inverted T waves in multiple inferior and anterolateral leads. Will continue on current anticoagulation and continue to monitor. Will continue with current PT/OT. Qualifiers: Chest pain type: unspecified Qualified Code(s): R07.9 - Chest pain, unspecified (2) COPD (chronic obstructive pulmonary disease) Current Visit: Yes Status: Chronic Assessment and plan: No acute issues. Patient's lungs are clear to auscultation. Patient continues without complaints of dyspnea or productive cough. We will continue with current medications and bronchodilators. Qualifiers: COPD type: unspecified COPD Qualified Code(s): J44.9 - Chronic obstructive pulmonary disease, unspecified (3) Hypertension Current Visit: Yes Status: Chronic Assessment and plan: Vital signs remained stable. We will continue with current medications. Qualifiers: Hypertension type: unspecified Qualified Code(s): I10 - Essential (primary ) hypertension (4) Altered mental status Current Visit: No Status: Acute Assessment and plan: Patient continues with mild dementia, although no behaviors have been reported per nursing. Patient appears appropriate with conversation but continues to have difficulty answering complex questions. Poor short-term memory recall Qualifiers: Altered mental status type: delirium Qualified Code(s): R41.0 - Disorientation, unspecified (5) LV (left ventricular) mural thrombus Current Visit: No Status: Acute Assessment and plan: Patient continues on anticoagulation. No acute issues. - Time Spent With Patient less than 15 minutes - Subjective Interval history: Recent currently appears relaxed and denies any discomforts or shortness of breath. Patient denies any palpitations or chest pain. Patient's poor historian and states that she does not remember her treatment last evening when she had complaints of chest pain. States uncertain about details describing last evening's event of chest pain - Constitutional Vitals: Temp Pulse Resp BP Pulse Ox 97.9 F 77 16 106/61 98 03/22/18 07:32 03/22/18 07:32 03/22/18 07:32 03/22/18 07:32 03/22/18 07:32 General appearance: Present: cooperative, A&O X 3, pleasant, underweight, answers questions appropriately Exam: Patient noted to have some difficulty in answering complex questions. - Head Head exam: Present: atraumatic, normocephalic - Eye Eye exam: Present: PERRL, conjuntiva pink, sclera anicteric Pupils: Present: PERRL - Neck Neck exam general surgery: Present: supple, trachea midline. Absent: lymphadenopathy - Respiratory Respiratory exam: Present: CTAB. Absent: accessory muscle use, rales, rhonchi, wheezes - Cardiovascular Cardiovascular exam: Present: RRR, +S1, +S2. Absent: diastolic murmur, gallop, rubs, systolic murmur - GI/Abdominal GI/Abdominal exam: Present: normal bowel sounds, soft, no peritoneal signs. Absent: distended, tenderness - Extremities Exam Extremities exam: Present: warm, radial pulses palpable and symmetrical. Absent : calf tenderness, cyanotic, pedal edema - Neurological Exam Neurological exam: Present: CN II-XII intact, oriented X3, no focal deficits. Absent: pronater drift, facial droop, speech deficit - Skin Skin exam: Present: dry, intact Internal Medicine: Result - Labs CBC & Chem 7: 03/21/18 18:52 03/21/18 18:52 Labs: Short CBC 03/21/18 Range/Units 18:52 WBC 10.2 (4.3-11.1) K/mcL Hgb 10.0 L (11.5-15.4) g/dL Hct 31.1 L (35.3-44.9) % Plt Count 228 (140-400) K/mcL Neutrophils # 6.8 (1.6-8.9) K/mcL BMP 03/21/18 18:52 Sodium 133 L Potassium 4.5 Chloride 102 Carbon Dioxide 25 BUN 9 Creatinine 0.71 Glucose 101 Calcium 9.0 Cardiac Enzymes 03/21/18 03/22/18 03/22/18 Range/Units 18:34 00:47 06:30 Troponin I < 0.03 < 0.03 < 0.03 (< 0.04) ng/mL - ABG Interpretation ABG results: PT/INR, D-dimer PT 17.1 Seconds (9.4-12.1) H 03/22/18 06:30 Consult Discharge Plan - Plan Referrals: Chiquita Colunga, ALEXIS [Primary Care Provider] - Figueroa Sanchez [Partnered Physician] - 04/18/18 8:00 am
[2018-03-22] MEDS: Thiamine (B-1) 100 MG TABLET PO SCH (17:05)
[2018-03-22] MEDS ORDERED: *HR* Warfarin 4 MG TABLET PO ONE (18:00)
[2018-03-22] MEDS: traMADol 50 MG TABLET PO PRN (20:10)
[2018-03-23 05:57] LABS: INR 1.6; Prothrombin Time 17.5 Seconds (9.4-12.1)
[2018-03-23] MEDS: Nicotine 21 MG PATCH.TD24 TD SCH (09:08)
[2018-03-23] MEDS: *HR* Enoxaparin 60 MG/0.6 ML SYRINGE SQ SCH ×2 (09:09→19:22)
[2018-03-23] MEDS: Cholecalciferol (D-3) 1,000 UNIT TABLET PO SCH (09:10)
[2018-03-23] MEDS: Magnesium Oxide 400 MG TABLET PO SCH ×3 (09:10→19:21)
[2018-03-23] MEDS: Lactulose Oral Soln 20 GM/30 ML UDC PO SCH (09:14)
--- NOTE | 2018-03-23 10:44 | Internal Med Progress Note ---
Date of Encounter: 03/23/18 Time of Encounter: 10:42 - Assessment and plan (1) COPD (chronic obstructive pulmonary disease) Current Visit: Yes Status: Chronic Assessment and plan: stable breathing at the present time and is her baseline Qualifiers: COPD type: unspecified COPD Qualified Code(s): J44.9 - Chronic obstructive pulmonary disease, unspecified (2) Hypertension Current Visit: Yes Status: Chronic Assessment and plan: stable no new change Qualifiers: Hypertension type: unspecified Qualified Code(s): I10 - Essential (primary ) hypertension (3) NSTEMI (non-ST elevated myocardial infarction) Current Visit: No Status: Acute Assessment and plan: no chest pain stable able to tolerate exercise and is improving in her strength and ability to walk (4) Mural thrombus of heart Current Visit: No Status: Acute Assessment and plan: inr subtheraptuic . Pharmacy is managing it . On lovenox again .warfarin being adjusted. Recommend a loading dose and then adjust dose (5) CHF (congestive heart failure) Current Visit: No Status: Acute Assessment and plan: clinically stable She is able to lay down flat without any issues continue to monitor Qualifiers: Heart failure type: systolic Heart failure chronicity: unspecified Qualified Code(s): I50.20 - Unspecified systolic (congestive) heart failure (6) Hypomagnesemia Current Visit: No Status: Resolved Assessment and plan: resolved last levels were 1.7 - Subjective Interval history: pt no new issues today fsleeping well no acute issues no breathing issues still has some pain in her abdomen where she had a small hematoma but its getting better no fever or chills - Constitutional Vitals: Temp Pulse Resp BP Pulse Ox 98.5 F 71 16 106/57 96 03/23/18 07:00 03/23/18 07:00 03/23/18 07:00 03/23/18 07:00 03/23/18 07:00 General appearance: Present: cooperative, A&O X 3, pleasant, underweight, answers questions appropriately - Head Head exam: Present: atraumatic - Eye Eye exam: Present: EOMI, PERRL. Absent: conjuntiva pink, sclera anicteric - Neck Neck exam general surgery: Present: supple. Absent: tenderness, nuchal rigidity - Respiratory Respiratory exam: Present: CTAB. Absent: chest wall tenderness, respiratory distress, rhonchi, stridor, wheezes, tachypnea - Cardiovascular Cardiovascular exam: Present: RRR, +S1, +S2. Absent: irregular rhythm, JVD - GI/Abdominal GI/Abdominal exam: Present: normal bowel sounds, tenderness. Absent: distended , guarding, rebound, rigid Additional comments: small area of hardness where she had small hematomo no skin changes noted - Extremities Exam Extremities exam: Absent: pedal edema, tenderness - Neurological Exam Neurological exam: Present: alert, CN II-XII intact, oriented X3, no focal deficits, strengths equal and symetr throughout. Absent: facial droop, speech deficit Internal Medicine: Result - Labs CBC & Chem 7: 03/21/18 18:52 03/21/18 18:52 - ABG Interpretation ABG results: PT/INR, D-dimer PT 17.5 Seconds (9.4-12.1) H 03/23/18 04:45 Consult Discharge Plan - Plan Referrals: Chiquita Colunga CNP [Primary Care Provider] - Figueroa Sanchez [Partnered Physician] - 04/18/18 8:00 am
[2018-03-23] MEDS ORDERED: *HR* Warfarin 4 MG TABLET PO ONE (18:00)
[2018-03-23] MEDS: Thiamine (B-1) 100 MG TABLET PO SCH (18:02)
[2018-03-23] MEDS: traMADol 50 MG TABLET PO PRN (19:21)
[2018-03-24 05:41] LABS: INR 1.8; Prothrombin Time 19.5 Seconds (9.4-12.1)
[2018-03-24] MEDS: Magnesium Oxide 400 MG TABLET PO SCH ×3 (08:55→19:25)
[2018-03-24] MEDS: Nicotine 21 MG PATCH.TD24 TD SCH (08:55)
[2018-03-24] MEDS: Lactulose Oral Soln 20 GM/30 ML UDC PO SCH (08:55)
[2018-03-24] MEDS: Cholecalciferol (D-3) 1,000 UNIT TABLET PO SCH (08:55)
[2018-03-24] MEDS: *HR* Enoxaparin 60 MG/0.6 ML SYRINGE SQ SCH ×2 (08:57→19:25)
--- NOTE | 2018-03-24 11:03 | Electrocardiograph Report ---
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
--- NOTE | 2018-03-24 11:22 | Internal Med Progress Note ---
Date of Encounter: 03/24/18 Time of Encounter: 11:20 - Assessment and plan (1) COPD (chronic obstructive pulmonary disease) Current Visit: Yes Status: Chronic Assessment and plan: stable no new change Qualifiers: COPD type: unspecified COPD Qualified Code(s): J44.9 - Chronic obstructive pulmonary disease, unspecified (2) Hypertension Current Visit: Yes Status: Chronic Assessment and plan: stable no new change Qualifiers: Hypertension type: unspecified Qualified Code(s): I10 - Essential (primary ) hypertension (3) NSTEMI (non-ST elevated myocardial infarction) Current Visit: No Status: Acute Assessment and plan: no chest pain and is stable (4) Mural thrombus of heart Current Visit: No Status: Acute Assessment and plan: inr still sub therapeutic but better Pharmacy is managing it (5) CHF (congestive heart failure) Current Visit: No Status: Acute Assessment and plan: her baseline and stable Qualifiers: Heart failure type: systolic Heart failure chronicity: unspecified Qualified Code(s): I50.20 - Unspecified systolic (congestive) heart failure (6) Hypomagnesemia Current Visit: No Status: Resolved - Subjective Interval history: pt no new issues today laying bed comfortably Breathing is baseline and stable no other issues - Constitutional Vitals: Temp Pulse Resp BP Pulse Ox 97.1 F L 97 16 115/70 97 03/24/18 08:57 03/24/18 08:57 03/24/18 08:57 03/24/18 08:57 03/24/18 08:57 General appearance: Present: cooperative, A&O X 3, pleasant, underweight, answers questions appropriately - Head Head exam: Present: atraumatic - Eye Eye exam: Present: EOMI, PERRL - Neck Neck exam general surgery: Present: supple. Absent: tenderness, nuchal rigidity - Respiratory Respiratory exam: Present: CTAB. Absent: accessory muscle use, chest wall tenderness, decreased breath sounds, respiratory distress, rhonchi, stridor, wheezes, tachypnea - Cardiovascular Cardiovascular exam: Present: RRR, +S1, +S2. Absent: irregular rhythm, JVD, systolic murmur - GI/Abdominal GI/Abdominal exam: Present: normal bowel sounds, soft. Absent: distended, firm , guarding, rebound, rigid, tenderness, no peritoneal signs - Extremities Exam Extremities exam: Absent: pedal edema, tenderness - Neurological Exam Neurological exam: Present: alert, CN II-XII intact, oriented X3, no focal deficits. Absent: pronater drift, facial droop, speech deficit Internal Medicine: Result - Labs CBC & Chem 7: 03/21/18 18:52 03/21/18 18:52 - ABG Interpretation ABG results: PT/INR, D-dimer PT 19.5 Seconds (9.4-12.1) H 03/24/18 04:38 Consult Discharge Plan - Plan Referrals: Chiquita Colunga, ALEXIS [Primary Care Provider] - Figueroa Sanchez [Partnered Physician] - 04/18/18 8:00 am
[2018-03-24] MEDS: Thiamine (B-1) 100 MG TABLET PO SCH (16:09)
[2018-03-24] MEDS ORDERED: *HR* Warfarin 4 MG TABLET PO ONE (18:00)
[2018-03-24] MEDS: traMADol 50 MG TABLET PO PRN (19:25)
--- NOTE | 2018-03-24 21:33 | Electrocardiograph Report ---
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
--- NOTE | 2018-03-24 21:44 | Electrocardiograph Report ---
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
[2018-03-25 06:03] LABS: Basophils # 0.1 K/mcL (0.0-0.2); Basophils % 0.9 %; Eosinophils # 0.5 K/mcL (0.0-0.6); Eosinophils % 7.2 %; Hematocrit 32.4 % (35.3-44.9); Hemoglobin 10.2 g/dL (11.5-15.4); INR 1.9; Immature Granulocytes % 0.6 % (0-4); Lymphocytes % 30.1 %; Mean Corpuscular HGB Conc 31.5 g/dL (31.6-35.5); Mean Corpuscular Hemoglobin 29.3 pg (28.0-33.3); Mean Corpuscular Volume 93.1 fL (83.0-100.0); Mean Platelet Volume 10.2 fL (9.4-12.4); Monocytes # 0.6 K/mcL (0.0-1.3); Monocytes % 9.4 %; Neutrophils # 3.5 K/mcL (1.6-8.9); Platelet Count 213 K/mcL (140-400); Prothrombin Time 20.5 Seconds (9.4-12.1); Red Blood Count 3.48 M/mcL (3.82-4.97); Red Cell Distribution Width 15.1 % (11.5-14.5); Segmented Neutrophils % 51.8 %
[2018-03-25 09:23] LABS: BUN/Creatinine Ratio 14 (6-26); Blood Urea Nitrogen 10 mg/dL (8-23); Carbon Dioxide 26 mEq/L (23-29); Chloride 105 mEq/L (98-107); Glucose 96 mg/dL (70-105); Osmolality,Calculated 285 (280-300); Potassium 4.1 mEq/L (3.5-5.1); Sodium 138 mEq/L (136-145); eGFR For African Americans > 60 (> 60); eGFR For Non-African Americans > 60 (> 60)
[2018-03-25] MEDS: Cholecalciferol (D-3) 1,000 UNIT TABLET PO SCH (09:52)
[2018-03-25] MEDS: Magnesium Oxide 400 MG TABLET PO SCH ×3 (09:52→19:39)
[2018-03-25] MEDS: Nicotine 21 MG PATCH.TD24 TD SCH (09:52)
[2018-03-25] MEDS: traMADol 50 MG TABLET PO PRN ×2 (09:53→19:39)
[2018-03-25] MEDS: Lactulose Oral Soln 20 GM/30 ML UDC PO SCH (09:53)
[2018-03-25] MEDS: *HR* Enoxaparin 60 MG/0.6 ML SYRINGE SQ SCH ×2 (09:54→19:39)
--- NOTE | 2018-03-25 10:45 | Internal Med Progress Note ---
Date of Encounter: 03/25/18 Time of Encounter: 10:43 - Assessment and plan (1) COPD (chronic obstructive pulmonary disease) Current Visit: Yes Status: Chronic Assessment and plan: This seems to be stable, clinically. Will follow, given her symptoms which might be respiratory. Qualifiers: COPD type: unspecified COPD Qualified Code(s): J44.9 - Chronic obstructive pulmonary disease, unspecified (2) Acute blood loss anemia Current Visit: Yes Status: Acute Assessment and plan: Clinically stable. We will follow. (3) DVT prophylaxis Current Visit: No Status: Acute Assessment and plan: She remains subtherapeutic but nearly reached a level where we can discontinue Lovenox. (4) Hypomagnesemia Current Visit: No Status: Resolved Assessment and plan: Resolved. Will follow in the future. (5) Hypertension Current Visit: Yes Status: Chronic Assessment and plan: Clinically stable. We will continue home regimen and follow. Qualifiers: Hypertension type: unspecified Qualified Code(s): I10 - Essential (primary ) hypertension (6) Tobacco dependence Current Visit: Yes Status: Chronic Assessment and plan: Clinically stable. Do not know if she will be able to stop smoking upon discharge. (7) Pruritus Current Visit: Yes Status: Acute Assessment and plan: Resolved. - Subjective Interval history: She states she is not feeling well. She still has cold symptoms. She has pain at the injection sites, at her abdomen. No other acute changes. Patient has no complaint of chest discomfort, dyspnea, orthopnea, palpitations, nausea or vomiting, constipation or diarrhea, other changes in bowel habits, difficulty with urination, rash or itching, or other new complaints, except as mentioned above. Review of systems is otherwise negative. - Constitutional Vitals: Temp Pulse Resp BP Pulse Ox 97.6 F 72 16 134/79 96 03/25/18 07:35 03/25/18 07:35 03/25/18 07:35 03/25/18 07:35 03/25/18 07:35 General appearance: Present: cooperative, pleasant, answers questions appropriately Exam: Examination: (Except as mentioned above): General: In no apparent distress. Alert and oriented 3. Nondiaphoretic. Head: Atraumatic and normocephalic. Respiratory: No use of accessory muscles. Lungs are clear throughout. Normal airflow. Cardiovascular: Regular rate and rhythm without murmur appreciated. Abdomen: Bowel sounds are normal. No hepatosplenomegaly mass or tenderness appreciated. Obese and therefore difficult to palpate deeply. Still has superficial tenderness at injection sites. Extremities: No cyanosis clubbing or edema. Skin: Warm and non-diaphoretic with no new lesions noted. Internal Medicine: Result - Labs CBC & Chem 7: 03/25/18 05:20 03/25/18 05:20 Labs: Short CBC 03/25/18 Range/Units 05:20 WBC 6.8 (4.3-11.1) K/mcL Hgb 10.2 L (11.5-15.4) g/dL Hct 32.4 L (35.3-44.9) % Plt Count 213 (140-400) K/mcL Neutrophils # 3.5 (1.6-8.9) K/mcL BMP 03/25/18 05:20 Sodium 138 Potassium 4.1 Chloride 105 Carbon Dioxide 26 BUN 10 Creatinine 0.74 Glucose 96 Calcium 9.0 - ABG Interpretation ABG results: PT/INR, D-dimer PT 20.5 Seconds (9.4-12.1) H 03/25/18 05:20 Consult Discharge Plan - Plan Referrals: Chiquita Colunga CNP [Primary Care Provider] - Figueroa Sanchez [Partnered Physician] - 04/18/18 8:00 am
[2018-03-25] MEDS ORDERED: *HR* Warfarin 3 MG TABLET PO ONE (18:00)
[2018-03-25] MEDS: Thiamine (B-1) 100 MG TABLET PO SCH (18:29)
[2018-03-26 07:48] LABS: INR 1.7; Prothrombin Time 18.4 Seconds (9.4-12.1)
[2018-03-26] MEDS: Lactulose Oral Soln 20 GM/30 ML UDC PO SCH (09:38)
[2018-03-26] MEDS: Cholecalciferol (D-3) 1,000 UNIT TABLET PO SCH (09:39)
[2018-03-26] MEDS: Nicotine 21 MG PATCH.TD24 TD SCH (09:39)
[2018-03-26] MEDS: Magnesium Oxide 400 MG TABLET PO SCH ×3 (09:39→19:34)
[2018-03-26] MEDS: *HR* Enoxaparin 60 MG/0.6 ML SYRINGE SQ SCH ×3 (09:40→19:33)
--- NOTE | 2018-03-26 11:50 | Internal Med Progress Note ---
Date of Encounter: 03/26/18 Time of Encounter: 11:48 - Assessment and plan (1) Physical deconditioning Current Visit: Yes Status: Acute Assessment and plan: Continue PT\OT. Will follow progress. (2) COPD (chronic obstructive pulmonary disease) Current Visit: Yes Status: Chronic Assessment and plan: Controlled. Continue inhaled meds. Qualifiers: COPD type: unspecified COPD Qualified Code(s): J44.9 - Chronic obstructive pulmonary disease, unspecified (3) Tobacco dependence Current Visit: Yes Status: Chronic Assessment and plan: Stable. Will educate plan for smoking cessation prior to discharge. (4) Hypertension Current Visit: Yes Status: Chronic Assessment and plan: Controlled with current medication. Monitor blood pressure. Qualifiers: Hypertension type: unspecified Qualified Code(s): I10 - Essential (primary ) hypertension (5) Acute blood loss anemia Current Visit: Yes Status: Acute Assessment and plan: Stable. Will continue to follow labs. - Time Spent With Patient less than 15 minutes - Subjective Interval history: participating well with therapy. ambulating with walker. started celexa for chronic depression. discussed discharging to [facility]. denies any pain, fever, chills, NVD, SOB or chest pain. - Constitutional Vitals: Temp Pulse Resp BP Pulse Ox 98.0 F 70 16 135/77 97 03/26/18 06:00 03/26/18 06:00 03/26/18 06:00 03/26/18 06:00 03/26/18 06:00 General appearance: Present: cooperative, A&O X 3, pleasant, answers questions appropriately - Head Head exam: Present: atraumatic, normocephalic - Eye Eye exam: Present: PERRL, conjuntiva pink, sclera anicteric Pupils: Present: PERRL - Neck Neck exam general surgery: Present: supple, trachea midline. Absent: lymphadenopathy - Respiratory Respiratory exam: Present: CTAB. Absent: accessory muscle use, rales, rhonchi, wheezes - Cardiovascular Cardiovascular exam: Present: RRR, +S1, +S2. Absent: diastolic murmur, gallop, rubs, systolic murmur - GI/Abdominal GI/Abdominal exam: Present: normal bowel sounds, soft, no peritoneal signs. Absent: distended, tenderness - Extremities Exam Extremities exam: Present: warm, radial pulses palpable and symmetrical. Absent : calf tenderness, cyanotic, pedal edema - Neurological Exam Neurological exam: Present: CN II-XII intact, oriented X3, no focal deficits. Absent: pronater drift, facial droop, speech deficit - Skin Skin exam: Present: dry, intact Internal Medicine: Result - Labs CBC & Chem 7: 03/25/18 05:20 03/25/18 05:20 - ABG Interpretation ABG results: PT/INR, D-dimer PT 18.4 Seconds (9.4-12.1) H 03/26/18 06:48 Consult Discharge Plan - Plan Referrals: Chiquita Colunga, TELEVISION SERVICE ENGINEER [Primary Care Provider] - Figueroa Sanchez [Partnered Physician] - 04/18/18 8:00 am
[2018-03-26] MEDS: Thiamine (B-1) 100 MG TABLET PO SCH (17:14)
[2018-03-26] MEDS ORDERED: *HR* Warfarin 5 MG TABLET PO ONE (18:00)
[2018-03-26] MEDS ORDERED: *HR* Warfarin 4 MG TABLET PO ONE (18:00)
[2018-03-26] MEDS: traMADol 50 MG TABLET PO PRN (19:34)
[2018-03-27 05:48] LABS: INR 1.9; Prothrombin Time 20.9 Seconds (9.4-12.1)
[2018-03-27] MEDS: Nicotine 21 MG PATCH.TD24 TD SCH (08:05)
[2018-03-27] MEDS: *HR* Enoxaparin 60 MG/0.6 ML SYRINGE SQ SCH ×2 (08:05→20:31)
[2018-03-27] MEDS: Magnesium Oxide 400 MG TABLET PO SCH ×3 (08:05→20:31)
[2018-03-27] MEDS: Cholecalciferol (D-3) 1,000 UNIT TABLET PO SCH (08:06)
[2018-03-27] MEDS: Lactulose Oral Soln 20 GM/30 ML UDC PO SCH (08:06)
[2018-03-27] MEDS: traMADol 50 MG TABLET PO PRN (09:24)
--- NOTE | 2018-03-27 12:06 | Internal Med Progress Note ---
Date of Encounter: 03/27/18 Time of Encounter: 12:05 - Assessment and plan (1) Physical deconditioning Current Visit: Yes Status: Acute Assessment and plan: Continue PT\OT. Will follow progress. (2) COPD (chronic obstructive pulmonary disease) Current Visit: Yes Status: Chronic Assessment and plan: Controlled. Continue inhaled meds. Qualifiers: COPD type: unspecified COPD Qualified Code(s): J44.9 - Chronic obstructive pulmonary disease, unspecified (3) Tobacco dependence Current Visit: Yes Status: Chronic Assessment and plan: Stable. Will educate plan for smoking cessation prior to discharge. (4) Hypertension Current Visit: Yes Status: Chronic Assessment and plan: Controlled with current medication. Monitor blood pressure. Qualifiers: Hypertension type: unspecified Qualified Code(s): I10 - Essential (primary ) hypertension (5) Acute blood loss anemia Current Visit: Yes Status: Acute Assessment and plan: Stable. Will continue to follow labs. - Time Spent With Patient 25 - 35 minutes - Subjective Interval history: participating well with therapy. ambulating with walker. started celexa for chronic depression. discussed discharging to [facility] next week. therapy to work with ambulating without walker.. denies any pain, fever, chills, NVD, SOB or chest pain. - Constitutional Vitals: Temp Pulse Resp BP Pulse Ox 98 F 83 16 122/66 98 03/27/18 07:00 03/27/18 07:00 03/27/18 07:00 03/27/18 07:00 03/27/18 07:00 General appearance: Present: cooperative, A&O X 3, pleasant, answers questions appropriately - Head Head exam: Present: atraumatic, normocephalic - Eye Eye exam: Present: PERRL, conjuntiva pink, sclera anicteric Pupils: Present: PERRL - Neck Neck exam general surgery: Present: supple, trachea midline. Absent: lymphadenopathy - Respiratory Respiratory exam: Present: CTAB. Absent: accessory muscle use, rales, rhonchi, wheezes - Cardiovascular Cardiovascular exam: Present: RRR, +S1, +S2. Absent: diastolic murmur, gallop, rubs, systolic murmur - GI/Abdominal GI/Abdominal exam: Present: normal bowel sounds, soft, no peritoneal signs. Absent: distended, tenderness - Extremities Exam Extremities exam: Present: warm, radial pulses palpable and symmetrical. Absent : calf tenderness, cyanotic, pedal edema - Neurological Exam Neurological exam: Present: CN II-XII intact, oriented X3, no focal deficits. Absent: pronater drift, facial droop, speech deficit - Skin Skin exam: Present: dry, intact Internal Medicine: Result - Labs CBC & Chem 7: 03/25/18 05:20 03/25/18 05:20 - ABG Interpretation ABG results: PT/INR, D-dimer PT 20.9 Seconds (9.4-12.1) H 03/27/18 05:40 Consult Discharge Plan - Plan Referrals: Chiquita Colunga, ALEXIS [Primary Care Provider] - Figueroa Sanchez [Partnered Physician] - 04/18/18 8:00 am
[2018-03-27] MEDS: Thiamine (B-1) 100 MG TABLET PO SCH (17:48)
[2018-03-27] MEDS ORDERED: *HR* Warfarin 3 MG TABLET PO ONE (18:00)
[2018-03-28 05:30] LABS: Prothrombin Time 21.8 Seconds (9.4-12.1)
[2018-03-28] MEDS: Magnesium Oxide 400 MG TABLET PO SCH ×3 (08:20→19:24)
[2018-03-28] MEDS: Nicotine 21 MG PATCH.TD24 TD SCH (08:21)
[2018-03-28] MEDS: Lactulose Oral Soln 20 GM/30 ML UDC PO SCH (08:21)
[2018-03-28] MEDS: Cholecalciferol (D-3) 1,000 UNIT TABLET PO SCH (08:21)
[2018-03-28] MEDS: *HR* Enoxaparin 60 MG/0.6 ML SYRINGE SQ SCH ×2 (08:21→22:21)
[2018-03-28] MEDS: traMADol 50 MG TABLET PO PRN ×2 (08:25→19:24)
--- NOTE | 2018-03-28 10:15 | Internal Med Progress Note ---
Date of Encounter: 03/28/18 Time of Encounter: 10:11 - Assessment and plan (1) COPD (chronic obstructive pulmonary disease) Current Visit: Yes Status: Chronic Assessment and plan: No acute issues. Patient's lungs are clear to auscultation. Patient continues without complaints of dyspnea or productive cough. We will continue with current medications and bronchodilators. Qualifiers: COPD type: unspecified COPD Qualified Code(s): J44.9 - Chronic obstructive pulmonary disease, unspecified (2) Hypertension Current Visit: Yes Status: Chronic Assessment and plan: Vital signs remained stable. We will continue with current medications. Qualifiers: Hypertension type: unspecified Qualified Code(s): I10 - Essential (primary ) hypertension (3) LV (left ventricular) mural thrombus Current Visit: No Status: Acute Assessment and plan: Patient continues on Lovenox bridge. Most recent INR 2.0. If remains therapeutic tomorrow will discontinue Lovenox. Patient continues to c/o of a painful hematoma to the LLQ from a previous injection. Noted small hematoma to the RLL from a recent injection.. (4) Chest pain Current Visit: Yes Status: Acute Assessment and plan: Denies any chest discomforts or palpitations. Denies any dyspnea. Qualifiers: Chest pain type: unspecified Qualified Code(s): R07.9 - Chest pain, unspecified - Subjective Interval history: Recent currently appears relaxed and denies any discomforts or shortness of breath. Patient denies any palpitations or chest pain. Patient does have c/o having intermittent low back pain, which states describes as a sharp pain. States no triggers to bring about the pain, that it is random. Denies any radicular symptoms. Patient also c/o continued pain to the LLQ abd hematoma, from a previous Lovenox injection. The hematoma does not appear to be any larger since last exam , but does remain painful to touch. - Constitutional Vitals: Temp Pulse Resp BP Pulse Ox 98.5 F 74 12 125/60 94 03/28/18 08:00 03/28/18 08:00 03/28/18 08:00 03/28/18 08:00 03/28/18 08:00 General appearance: Present: cooperative, A&O X 3, pleasant, answers questions appropriately - Head Head exam: Present: atraumatic, normocephalic - Eye Eye exam: Present: PERRL, conjuntiva pink, sclera anicteric Pupils: Present: PERRL - Neck Neck exam general surgery: Present: supple, trachea midline. Absent: lymphadenopathy - Respiratory Respiratory exam: Present: CTAB. Absent: accessory muscle use, rales, rhonchi, wheezes - Cardiovascular Cardiovascular exam: Present: RRR, +S1, +S2. Absent: diastolic murmur, gallop, rubs, systolic murmur - GI/Abdominal GI/Abdominal exam: Present: normal bowel sounds, soft, no peritoneal signs. Absent: distended, tenderness Additional comments: LLQ hematoma approx 4cm across in size. Tender to touch. - Extremities Exam Extremities exam: Present: warm, radial pulses palpable and symmetrical. Absent : calf tenderness, cyanotic, pedal edema - Back Exam Back exam: Present: full ROM, paraspinal tenderness Additional comments: Slight tenderness to upper lumbar area on palpation. No deformities or obvious injuries noted. No stepoffs. - Neurological Exam Neurological exam: Present: CN II-XII intact, oriented X3, no focal deficits. Absent: pronater drift, facial droop, speech deficit - Skin Skin exam: Present: dry, intact Internal Medicine: Result - Labs CBC & Chem 7: 03/25/18 05:20 03/25/18 05:20 - ABG Interpretation ABG results: PT/INR, D-dimer PT 21.8 Seconds (9.4-12.1) H 03/28/18 05:10 Consult Discharge Plan - Plan Referrals: Chiquita Colunga, ALEXIS [Primary Care Provider] - Figueroa Sanchez [Partnered Physician] - 04/18/18 8:00 am
[2018-03-28] MEDS ORDERED: *HR* Warfarin 5 MG TABLET PO ONE (18:00)
[2018-03-28] MEDS: Thiamine (B-1) 100 MG TABLET PO SCH (18:46)
[2018-03-29 08:03] LABS: INR 1.8; Prothrombin Time 19.8 Seconds (9.4-12.1)
[2018-03-29] MEDS: Cholecalciferol (D-3) 1,000 UNIT TABLET PO SCH (08:40)
[2018-03-29] MEDS: Magnesium Oxide 400 MG TABLET PO SCH ×3 (08:40→22:16)
[2018-03-29] MEDS: Nicotine 21 MG PATCH.TD24 TD SCH (08:40)
[2018-03-29] MEDS: Lactulose Oral Soln 20 GM/30 ML UDC PO SCH (08:40)
[2018-03-29] MEDS: *HR* Enoxaparin 60 MG/0.6 ML SYRINGE SQ SCH ×2 (08:41→22:16)
--- NOTE | 2018-03-29 11:48 | Internal Med Progress Note ---
Date of Encounter: 03/29/18 Time of Encounter: 11:46 - Assessment and plan (1) COPD (chronic obstructive pulmonary disease) Current Visit: Yes Status: Chronic Assessment and plan: No acute issues. Patient's lungs are clear to auscultation. Patient continues without complaints of dyspnea or productive cough. We will continue with current medications and bronchodilators. Qualifiers: COPD type: unspecified COPD Qualified Code(s): J44.9 - Chronic obstructive pulmonary disease, unspecified (2) Hypertension Current Visit: Yes Status: Chronic Assessment and plan: Vital signs remained stable. We will continue with current medications. Qualifiers: Hypertension type: unspecified Qualified Code(s): I10 - Essential (primary ) hypertension (3) LV (left ventricular) mural thrombus Current Visit: No Status: Acute Assessment and plan: Patient continues on Lovenox bridge. Most recent INR 1.8 and coumadin increased to 6mg per Pharmacy. If INR is therapeutic for 2 days, will discontinue Lovenox. Patient continues to c/o of a painful hematoma to the LLQ from a previous injection. No acute changes to hematoma over the past week. Noted small hematoma to the RLL from a recent injection and several bruises to abd. (4) Chest pain Current Visit: Yes Status: Acute Assessment and plan: Denies any chest discomforts or palpitations. Denies any dyspnea. Qualifiers: Chest pain type: unspecified Qualified Code(s): R07.9 - Chest pain, unspecified - Time Spent With Patient less than 15 minutes - Subjective Interval history: Recent currently appears relaxed and denies any discomforts or shortness of breath. Patient denies any palpitations or chest pain. Patient has had c/o having intermittent low back pain, but today denies any issues. Patient also c/o continued pain to the LLQ abd hematoma, from a previous Lovenox injection. The hematoma does not appear to be any larger since last exam , but does remain painful to touch. Todays INR 1.8 and continues with Lovenox bridging. INR managed by pharmacy. - Constitutional Vitals: Temp Pulse Resp BP Pulse Ox 98.4 F 74 16 112/62 93 03/29/18 07:35 03/29/18 07:35 03/29/18 07:35 03/29/18 10:07 03/29/18 07:35 General appearance: Present: cooperative, A&O X 3, pleasant, answers questions appropriately - Head Head exam: Present: atraumatic, normocephalic - Eye Eye exam: Present: PERRL, conjuntiva pink, sclera anicteric Pupils: Present: PERRL - Neck Neck exam general surgery: Present: supple, trachea midline. Absent: lymphadenopathy - Respiratory Respiratory exam: Present: CTAB. Absent: accessory muscle use, rales, rhonchi, wheezes - Cardiovascular Cardiovascular exam: Present: RRR, +S1, +S2. Absent: diastolic murmur, gallop, rubs, systolic murmur - GI/Abdominal GI/Abdominal exam: Present: normal bowel sounds, soft, no peritoneal signs. Absent: distended, tenderness Additional comments: LLQ with approx. 4-5 cm hematoma which is firm and tender. Several areas of bruising from Lovenox inj. - Extremities Exam Extremities exam: Present: warm, radial pulses palpable and symmetrical. Absent : calf tenderness, cyanotic, pedal edema - Neurological Exam Neurological exam: Present: CN II-XII intact, oriented X3, no focal deficits. Absent: pronater drift, facial droop, speech deficit - Skin Skin exam: Present: dry, intact Internal Medicine: Result - Labs CBC & Chem 7: 03/25/18 05:20 03/25/18 05:20 - ABG Interpretation ABG results: PT/INR, D-dimer PT 19.8 Seconds (9.4-12.1) H 03/29/18 06:30 Consult Discharge Plan - Plan Referrals: Chiquita Colunga, ALEXIS [Primary Care Provider] - Figueroa Sanchez [Partnered Physician] - 04/18/18 8:00 am
[2018-03-29] MEDS: Thiamine (B-1) 100 MG TABLET PO SCH (17:52)
[2018-03-29] MEDS ORDERED: *HR* Warfarin 3 MG TABLET PO ONE (18:00)
[2018-03-29] MEDS: traMADol 50 MG TABLET PO PRN (22:17)
[2018-03-30 05:42] LABS: INR 1.9; Prothrombin Time 20.8 Seconds (9.4-12.1)
[2018-03-30] MEDS: Lactulose Oral Soln 20 GM/30 ML UDC PO SCH (09:27)
[2018-03-30] MEDS: *HR* Enoxaparin 60 MG/0.6 ML SYRINGE SQ SCH ×2 (09:27→21:00)
[2018-03-30] MEDS: Magnesium Oxide 400 MG TABLET PO SCH ×3 (09:28→21:00)
[2018-03-30] MEDS: Cholecalciferol (D-3) 1,000 UNIT TABLET PO SCH (09:28)
[2018-03-30] MEDS: traMADol 50 MG TABLET PO PRN ×2 (09:28→21:01)
[2018-03-30] MEDS: Nicotine 21 MG PATCH.TD24 TD SCH (09:29)
--- NOTE | 2018-03-30 16:26 | Internal Med Progress Note ---
Date of Encounter: 03/30/18 Time of Encounter: 16:24 - Assessment and plan (1) COPD (chronic obstructive pulmonary disease) Current Visit: Yes Status: Chronic Assessment and plan: This seems to be stable, clinically. Again, seen no abnormality by physical and history. Qualifiers: COPD type: unspecified COPD Qualified Code(s): J44.9 - Chronic obstructive pulmonary disease, unspecified (2) Acute blood loss anemia Current Visit: Yes Status: Acute Assessment and plan: Clinically stable. We will follow. (3) DVT prophylaxis Current Visit: No Status: Acute Assessment and plan: We will continue to follow, increasing her Coumadin but trying to avoid hyper therapeutic state, as well. We will continue with Coumadin as planned and bridging Lovenox, as before. (4) Hypomagnesemia Current Visit: No Status: Resolved (5) Hypertension Current Visit: Yes Status: Chronic Assessment and plan: Clinically stable. We will continue current regimen and follow. Qualifiers: Hypertension type: unspecified Qualified Code(s): I10 - Essential (primary ) hypertension (6) Tobacco dependence Current Visit: Yes Status: Chronic Assessment and plan: Clinically stable. As before, do not know if she will be able to stop smoking upon discharge. (7) Shoulder pain Current Visit: Yes Status: Acute Assessment and plan: Etiology is uncertain but will follow. I told patient this may be because of her therapy or something else. Qualifiers: Chronicity: acute Laterality: bilateral Qualified Code(s): M25.511 - Pain in right shoulder; M25.512 - Pain in left shoulder - Subjective Interval history: Cold symptoms have resolved. She still is fatigued and feels sleepy, much of the time. She notes aches and pains in her shoulders, below her scapula, and her right posterior chest. She denies cough or other problems. Patient has no complaint of chest discomfort, dyspnea, orthopnea, palpitations, nausea or vomiting, constipation or diarrhea, other changes in bowel habits, difficulty with urination, rash or itching, or other new complaints, except as mentioned above. Review of systems is otherwise negative. - Constitutional Vitals: Temp Pulse Resp BP Pulse Ox 98.2 F 71 16 128/86 94 03/30/18 07:08 03/30/18 07:08 03/30/18 07:08 03/30/18 07:08 03/30/18 07:08 General appearance: Present: cooperative, pleasant, answers questions appropriately Exam: Examination: (Except as mentioned above): General: In no apparent distress. Alert and oriented 3. Nondiaphoretic. Head: Atraumatic and normocephalic. Respiratory: No use of accessory muscles. Lungs are clear throughout. Normal airflow. Cardiovascular: Regular rate and rhythm without murmur appreciated. Abdomen: Bowel sounds are normal. No hepatosplenomegaly mass or tenderness appreciated. Obese and therefore difficult to palpate deeply. Extremities: No cyanosis clubbing or edema. There is no palpable deformity or tenderness with palpation of shoulders, scapular or periscapular regions, right rib cage. Skin: Warm and non-diaphoretic with no new lesions noted. Internal Medicine: Result - Labs CBC & Chem 7: 03/25/18 05:20 03/25/18 05:20 - ABG Interpretation ABG results: PT/INR, D-dimer PT 20.8 Seconds (9.4-12.1) H 03/30/18 05:20 Consult Discharge Plan - Plan Referrals: Chiquita Colunga, ALEXIS [Primary Care Provider] - Figueroa Sanchez [Partnered Physician] - 04/18/18 8:00 am
[2018-03-30] MEDS: Thiamine (B-1) 100 MG TABLET PO SCH (17:45)
[2018-03-30] MEDS ORDERED: *HR* Warfarin 3 MG TABLET PO ONE (18:00)
[2018-03-31 05:15] LABS: INR 1.9; Prothrombin Time 20.5 Seconds (9.4-12.1)
[2018-03-31] MEDS: Nicotine 21 MG PATCH.TD24 TD SCH (09:10)
[2018-03-31] MEDS: Magnesium Oxide 400 MG TABLET PO SCH ×3 (09:11→22:12)
[2018-03-31] MEDS: Cholecalciferol (D-3) 1,000 UNIT TABLET PO SCH (09:11)
[2018-03-31] MEDS: Lactulose Oral Soln 20 GM/30 ML UDC PO SCH (09:11)
[2018-03-31] MEDS: *HR* Enoxaparin 60 MG/0.6 ML SYRINGE SQ SCH ×2 (09:12→22:12)
[2018-03-31] MEDS: traMADol 50 MG TABLET PO PRN ×2 (09:12→22:13)
--- NOTE | 2018-03-31 15:06 | Internal Med Progress Note ---
Date of Encounter: 03/31/18 Time of Encounter: 15:03 - Assessment and plan (1) COPD (chronic obstructive pulmonary disease) Current Visit: Yes Status: Chronic Assessment and plan: This seems to be stable, clinically. Her sonorous rhonchi are bit concerning and I encouraged her to use the incentive spirometry. Will follow. Qualifiers: COPD type: unspecified COPD Qualified Code(s): J44.9 - Chronic obstructive pulmonary disease, unspecified (2) Acute blood loss anemia Current Visit: Yes Status: Acute Assessment and plan: Clinically stable. We will follow. Repeat CBC is due tomorrow morning. (3) DVT prophylaxis Current Visit: No Status: Acute Assessment and plan: I am surprised that she still has not reached the appropriate level for INR. Will continue to follow and increase her Coumadin, slightly. (4) Hypomagnesemia Current Visit: No Status: Resolved Assessment and plan: Resolved. Will follow tomorrow. (5) Hypertension Current Visit: Yes Status: Chronic Qualifiers: Hypertension type: unspecified Qualified Code(s): I10 - Essential (primary ) hypertension (6) Tobacco dependence Current Visit: Yes Status: Chronic (7) Shoulder pain Current Visit: Yes Status: Acute Assessment and plan: Improved. Will follow clinically. Qualifiers: Chronicity: acute Laterality: bilateral Qualified Code(s): M25.511 - Pain in right shoulder; M25.512 - Pain in left shoulder (8) Pruritus Current Visit: Yes Status: Acute Assessment and plan: Recurrent. Etiology is uncertain. Will use Benadryl when necessary. - Subjective Interval history: Less achy than yesterday. Slept better last night, as well. Nose that she has been constipated for 2 days but today had loose bowel movement. Denies dyspnea. She states she is "itchy everywhere" but denies rash or other central signs, etc. of allergy. Patient has no complaint of chest discomfort, dyspnea, orthopnea, palpitations, nausea or vomiting, constipation or diarrhea, other changes in bowel habits, difficulty with urination, rash or itching, or other new complaints, except as mentioned above. Review of systems is otherwise negative. - Constitutional Vitals: Temp Pulse Resp BP Pulse Ox 98.4 F 67 14 114/54 94 03/31/18 06:28 03/31/18 06:28 03/31/18 06:28 03/31/18 06:28 03/31/18 06:28 General appearance: Present: cooperative, pleasant, answers questions appropriately Exam: Examination: (Except as mentioned above): General: In no apparent distress. Alert and oriented 3. Nondiaphoretic. Head: Atraumatic and normocephalic. Respiratory: No use of accessory muscles. She has scattered sonorous rhonchi but has normal airflow. Cardiovascular: Regular rate and rhythm without murmur appreciated. Abdomen: Bowel sounds are normal. No hepatosplenomegaly mass or tenderness appreciated. Obese and therefore difficult to palpate deeply. Extremities: No cyanosis clubbing or edema. Skin: Warm and non-diaphoretic with no new lesions noted. Internal Medicine: Result - Labs CBC & Chem 7: 03/25/18 05:20 03/25/18 05:20 - ABG Interpretation ABG results: PT/INR, D-dimer PT 20.5 Seconds (9.4-12.1) H 03/31/18 04:30 Consult Discharge Plan - Plan Referrals: Chiquita Colunga CNP [Primary Care Provider] - Figueroa Sanchez [Partnered Physician] - 04/18/18 8:00 am
[2018-03-31] MEDS ORDERED: *HR* Warfarin 3 MG TABLET PO ONE (18:00)
[2018-03-31] MEDS: Thiamine (B-1) 100 MG TABLET PO SCH (18:07)
[2018-04-01 06:25] LABS: INR 2.2; Prothrombin Time 23.9 Seconds (9.4-12.1)
[2018-04-01] MEDS: Magnesium Oxide 400 MG TABLET PO SCH ×3 (08:49→20:55)
[2018-04-01] MEDS: Cholecalciferol (D-3) 1,000 UNIT TABLET PO SCH (08:49)
[2018-04-01] MEDS: Lactulose Oral Soln 20 GM/30 ML UDC PO SCH (08:50)
[2018-04-01] MEDS: Nicotine 21 MG PATCH.TD24 TD SCH (08:50)
--- NOTE | 2018-04-01 11:04 | Internal Med Progress Note ---
Date of Encounter: 04/01/18 Time of Encounter: 11:03 - Assessment and plan (1) COPD (chronic obstructive pulmonary disease) Current Visit: Yes Status: Chronic Assessment and plan: This seems to be stable, clinically. Sonorous rhonchi have totally resolved, today. Qualifiers: COPD type: unspecified COPD Qualified Code(s): J44.9 - Chronic obstructive pulmonary disease, unspecified (2) Acute blood loss anemia Current Visit: Yes Status: Acute Assessment and plan: Clinically stable. Repeat CBC is pending. (3) DVT prophylaxis Current Visit: No Status: Acute Assessment and plan: Sabra discontinue enoxaparin, as above. (4) Hypertension Current Visit: Yes Status: Chronic Assessment and plan: Clinically stable. We will continue current regimen and follow. Qualifiers: Hypertension type: unspecified Qualified Code(s): I10 - Essential (primary ) hypertension (5) Tobacco dependence Current Visit: Yes Status: Chronic Assessment and plan: We are still encouraging patient to discontinue tobacco use. (6) Shoulder pain Current Visit: Yes Status: Acute Assessment and plan: She has seening better. Qualifiers: Chronicity: acute Laterality: bilateral Qualified Code(s): M25.511 - Pain in right shoulder; M25.512 - Pain in left shoulder (7) Pruritus Current Visit: Yes Status: Acute Assessment and plan: Recurrent. Etiology is uncertain. Improved for now. - Subjective Interval history: No complaints. Aching is somewhat better than before. Itching is resolved after Benadryl yesterday. She is pleased that she will be off Lovenox shots. She moved her bowels this morning. Patient has no complaint of chest discomfort, dyspnea, orthopnea, palpitations, nausea or vomiting, constipation or diarrhea, other changes in bowel habits, difficulty with urination, rash or itching, or other new complaints, except as mentioned above. Review of systems is otherwise negative. - Constitutional Vitals: Temp Pulse Resp BP Pulse Ox 98.3 F 84 16 104/55 93 04/01/18 08:04 04/01/18 08:04 04/01/18 08:04 04/01/18 08:04 04/01/18 08:04 General appearance: Present: cooperative, pleasant, answers questions appropriately Exam: Examination: (Except as mentioned above): General: In no apparent distress. Alert and oriented 3. Nondiaphoretic. Head: Atraumatic and normocephalic. Respiratory: No use of accessory muscles. Lungs are clear throughout. Normal airflow. Cardiovascular: Regular rate and rhythm without murmur appreciated. Abdomen: Bowel sounds are normal. No hepatosplenomegaly mass or tenderness appreciated. Obese and therefore difficult to palpate deeply. Extremities: No cyanosis clubbing or edema. Skin: Warm and non-diaphoretic with no new lesions noted. Internal Medicine: Result - Labs CBC & Chem 7: 03/25/18 05:20 03/25/18 05:20 - ABG Interpretation ABG results: PT/INR, D-dimer PT 23.9 Seconds (9.4-12.1) H 04/01/18 05:45 Consult Discharge Plan - Plan Referrals: Chiquita Colunga, ALEXIS [Primary Care Provider] - Figueroa Sanchez [Partnered Physician] - 04/18/18 8:00 am
[2018-04-01 11:14] LABS: Basophils % 0.5 %; Eosinophils # 0.8 K/mcL (0.0-0.6); Eosinophils % 13.7 %; Hematocrit 31.4 % (35.3-44.9); Hemoglobin 10.2 g/dL (11.5-15.4); Immature Granulocytes % 0.3 % (0-4); Lymphocytes # 1.4 K/mcL (0.6-4.6); Lymphocytes % 22.3 %; Mean Corpuscular HGB Conc 32.5 g/dL (31.6-35.5); Mean Corpuscular Hemoglobin 30.3 pg (28.0-33.3); Mean Corpuscular Volume 93.2 fL (83.0-100.0); Mean Platelet Volume 9.7 fL (9.4-12.4); Monocytes # 0.6 K/mcL (0.0-1.3); Monocytes % 9.8 %; Neutrophils # 3.3 K/mcL (1.6-8.9); Platelet Count 195 K/mcL (140-400); Red Blood Count 3.37 M/mcL (3.82-4.97); Red Cell Distribution Width 14.6 % (11.5-14.5); Segmented Neutrophils % 53.4 %
[2018-04-01 11:29] LABS: Alanine Aminotransferase 22 Units/L (7-52); Albumin 3.2 g/dL (3.5-5.7); Albumin/Globulin Ratio 1.3 (1.1-2.2); Alkaline Phosphatase 73 Units/L (34-104); Aspartate Amino Transferase 27 Units/L (13-39); BUN/Creatinine Ratio 15 (6-26); Bilirubin,Total 0.3 mg/dL (0.3-1.0); Blood Urea Nitrogen 11 mg/dL (8-23); Carbon Dioxide 30 mEq/L (23-29); Chloride 100 mEq/L (98-107); Globulin 2.5 g/dL (2.4-3.5); Glucose 111 mg/dL (70-105); Osmolality,Calculated 280 (280-300); Potassium 4.9 mEq/L (3.5-5.1); Sodium 135 mEq/L (136-145); Total Protein 5.7 g/dL (6.4-8.9); eGFR For African Americans > 60 (> 60); eGFR For Non-African Americans > 60 (> 60)
[2018-04-01] MEDS: Thiamine (B-1) 100 MG TABLET PO SCH (17:30)
[2018-04-01] MEDS ORDERED: *HR* Warfarin 3 MG TABLET PO SCH (18:00)
[2018-04-02 06:58] LABS: INR 1.9; Prothrombin Time 20.3 Seconds (9.4-12.1)
[2018-04-02] MEDS: Nicotine 21 MG PATCH.TD24 TD SCH (08:29)
[2018-04-02] MEDS: Lactulose Oral Soln 20 GM/30 ML UDC PO SCH (08:30)
[2018-04-02] MEDS: Magnesium Oxide 400 MG TABLET PO SCH ×3 (08:31→20:02)
[2018-04-02] MEDS: Cholecalciferol (D-3) 1,000 UNIT TABLET PO SCH (08:31)
--- NOTE | 2018-04-02 08:33 | Internal Med Progress Note ---
Date of Encounter: 04/02/18 Time of Encounter: 08:31 - Assessment and plan (1) COPD (chronic obstructive pulmonary disease) Current Visit: Yes Status: Chronic Assessment and plan: This seems to be stable, clinically. Exam is within normal limits, today. Qualifiers: COPD type: unspecified COPD Qualified Code(s): J44.9 - Chronic obstructive pulmonary disease, unspecified (2) Acute blood loss anemia Current Visit: Yes Status: Acute Assessment and plan: Clinically stable. Lab is fine. (3) DVT prophylaxis Current Visit: No Status: Acute Assessment and plan: As above, Coumadin to be adjusted and remains subtherapeutic. Will resume Lovenox and patient understands. (4) Hypertension Current Visit: Yes Status: Chronic Assessment and plan: Clinically stable. We will continue current regimen and follow. Qualifiers: Hypertension type: unspecified Qualified Code(s): I10 - Essential (primary ) hypertension (5) Tobacco dependence Current Visit: Yes Status: Chronic Assessment and plan: Discussed with daughter who states that she will not be around any tobacco nor access. She is going to be without ability to drive to obtain tobacco use. We will need to give her nicotine patch so that this can be slowly weaned. (6) Shoulder pain Current Visit: Yes Status: Acute Assessment and plan: Currently, not an issue. Qualifiers: Chronicity: acute Laterality: bilateral Qualified Code(s): M25.511 - Pain in right shoulder; M25.512 - Pain in left shoulder (7) Pruritus Current Visit: Yes Status: Acute Assessment and plan: Again, seems to have resolved for now. - Subjective Interval history: Slept well and denies aches and pains, as before. States that she moved her bowels loosely couple of times yesterday. We discussed Lovenox shots and need for them to resume as she is subtherapeutic , again today. Will only slightly increase Coumadin dose. This is because of her bleeding and supratherapeutic levels, even here. I could not find mag oxide and thought she had been discontinued and rewrote for it but nursing tells me she still has it, as before. It will remain. Patient has no complaint of chest discomfort, dyspnea, orthopnea, palpitations, nausea or vomiting, constipation or diarrhea, other changes in bowel habits, difficulty with urination, rash or itching, or other new complaints, except as mentioned above. Review of systems is otherwise negative. - Constitutional Vitals: Temp Pulse Resp BP Pulse Ox 98.2 F 64 16 121/58 98 04/02/18 07:14 04/02/18 07:14 04/02/18 07:14 04/02/18 07:14 04/02/18 07:14 General appearance: Present: cooperative, pleasant, answers questions appropriately Exam: Examination: (Except as mentioned above): General: In no apparent distress. Alert and oriented 3. Nondiaphoretic. Head: Atraumatic and normocephalic. Respiratory: No use of accessory muscles. Lungs are clear throughout. Normal airflow. Cardiovascular: Regular rate and rhythm without murmur appreciated. Abdomen: Bowel sounds are normal. No hepatosplenomegaly mass or tenderness appreciated. Obese and therefore difficult to palpate deeply.Patient is examined upright in chair and this also limits exam. Extremities: No cyanosis clubbing or edema. There is no cord or calf tenderness. Skin: Warm and non-diaphoretic with no new lesions noted. Internal Medicine: Result - Labs CBC & Chem 7: 04/01/18 11:09 04/01/18 11:09 Labs: Short CBC 04/01/18 Range/Units 11:09 WBC 6.1 (4.3-11.1) K/mcL Hgb 10.2 L (11.5-15.4) g/dL Hct 31.4 L (35.3-44.9) % Plt Count 195 (140-400) K/mcL Neutrophils # 3.3 (1.6-8.9) K/mcL BMP 04/01/18 11:09 Sodium 135 L Potassium 4.9 Chloride 100 Carbon Dioxide 30 H BUN 11 Creatinine 0.72 Glucose 111 H Calcium 9.0 Liver Function 04/01/18 Range/Units 11:09 Total Bilirubin 0.3 (0.3-1.0) mg/dL AST 27 (13-39) Units/L ALT 22 (7-52) Units/L Alkaline Phosphatase 73 (34-104) Units/L Albumin 3.2 L (3.5-5.7) g/dL - ABG Interpretation ABG results: PT/INR, D-dimer PT 20.3 Seconds (9.4-12.1) H 04/02/18 06:44 Consult Discharge Plan - Plan Referrals: Chiquita Colunga, ALEXIS [Primary Care Provider] - Figueroa Sanchez [Partnered Physician] - 04/18/18 8:00 am
[2018-04-02] MEDS: *HR* Enoxaparin 40 MG/0.4 ML SYRINGE SQ SCH (08:35)
[2018-04-02] MEDS ORDERED: Magnesium Oxide 400 MG TABLET PO SCH (09:00)
[2018-04-02] MEDS: Thiamine (B-1) 100 MG TABLET PO SCH (17:10)
[2018-04-02] MEDS ORDERED: *HR* Warfarin 7.5 MG TABLET PO ONE (18:00)
[2018-04-02] MEDS ORDERED: *HR* Warfarin 3 MG TABLET PO SCH (18:00)
[2018-04-03] MEDS: *HR* Enoxaparin 40 MG/0.4 ML SYRINGE SQ SCH (05:35)
[2018-04-03 07:03] VITALS: BP 155/65
[2018-04-03 07:26] LABS: INR 2.2; Prothrombin Time 23.7 Seconds (9.4-12.1)
[2018-04-03] MEDS: Lactulose Oral Soln 20 GM/30 ML UDC PO SCH (08:47)
[2018-04-03] MEDS: Cholecalciferol (D-3) 1,000 UNIT TABLET PO SCH (08:48)
[2018-04-03] MEDS: Magnesium Oxide 400 MG TABLET PO SCH ×2 (08:48→15:54)
[2018-04-03] MEDS: Nicotine 21 MG PATCH.TD24 TD SCH (08:49)
--- NOTE | 2018-04-03 13:03 | Physician Discharge Referral ---
Home Health/Hosp Referral Info Transfer to: Home Health - Diagnosis (1) Physical deconditioning Priority: Primary Status: Acute (2) COPD (chronic obstructive pulmonary disease) Priority: Primary Status: Chronic (3) Tobacco dependence Priority: Secondary Status: Chronic (4) Hypertension Priority: Secondary Status: Chronic (5) Acute blood loss anemia Priority: Secondary Status: Acute - Respiratory Orders Smoking Cessation: Smoking cessation has been advised. For more information, call the [place] Tobacco Quit Line at 8-302-OBXD-NOW. - Diet/Nutrition Diet/Nutrition Orders: Regular - Activity Activity Orders: Ambulate, Walker - Services Needed Following services are medically necessary services: Physical Therapy, Occupational Therapy, Speech Therapy - Transfer Medications Home Medications: Atorvastatin [Lipitor] 80 mg PO HS 11/26/17 [History] Omeprazole [PriLOSEC] 20 mg PO DAILY 11/26/17 [History] Phos-NaK [Neutra-Phos] 2 each PO BID #120 powd.pack 11/30/17 [Rx] Potassium Chloride 20 meq PO BID #60 tab.er.prt 11/30/17 [Rx] Sodium Bicarbonate 650 mg PO TID #180 tablet 11/30/17 [Rx] Lactulose 15 ml PO DAILY 02/20/18 [History] Magnesium Oxide [Mag-Ox] 400 mg PO TID 02/20/18 [History] Carvedilol [Coreg] 6.25 mg PO BIDWM tablet 03/13/18 [Rx] Chlordiazepoxide [Librium] 10 mg PO BID 5 Days #10 capsule 03/13/18 [Rx] Cholecalciferol (D-3) [Vitamin D] 1,000 unit PO DAILY tablet 03/13/18 [Rx] Enoxaparin [Lovenox] 60 mg SQ Q12HR syringe 03/13/18 [Rx] Ipratropium/Albuterol Neb [Duoneb] 3 ml IH [id number] inhsol 03/13/18 [Rx] Nicotine Patch [Nicoderm] 21 mg TD DAILY patch.td24 03/13/18 [Rx] Thiamine (B-1) [Vitamin B-1] 100 mg PO 1800 tablet 03/13/18 [Rx] Tramadol HCl [Ultram] 50 mg PO Q6-8H PRN 2 Days #8 tablet 03/13/18 [Rx] Warfarin perPT [Coumadin perPT] 1 each PO DAILY@1800 PRN each 03/13/18 [Rx] Allergies/Adverse Reactions: 3 Allergy/AdvReac Type Severity Reaction Status Date / Time No Known Allergies Allergy Verified 02/20/18 18:06 Certification: Further, I certify that my clinical findings support that this patient is homebound (i.e. absences from home require considerable and taxing effort and are for medical reasons or cheondoism services or infrequently or short duration when for other reasons) because: Homebound Reason: Patient requires assistance of a person or device to safely leave home, Leaving home requires considerable and taxing effort due to condition Attestation: My signature below is to certify that this patient is under my care and that I, or nurse practitioner, or a physician's executive assistant to president working with me, has a face-to -face encounter with this patient.
--- NOTE | 2018-04-03 13:35 | Discharge Summary ---
Orders not resulted at time of discharge: Pending orders 04/04/18 04:00 INR/PT [Prothrombin Time INR] [COAG] AM 0400 Date of Encounter: 04/03/18 Time of Encounter: 13:31 - Discharge Diagnosis (1) Physical deconditioning Priority: Primary Status: Acute (2) COPD (chronic obstructive pulmonary disease) Priority: Primary Status: Chronic Comments: Stable. Continue current medications. Follow up with PCP Qualifiers: COPD type: unspecified COPD Qualified Code(s): J44.9 - Chronic obstructive pulmonary disease, unspecified (3) Tobacco dependence Priority: Secondary Status: Chronic Comments: Continue smoking cessation education. Follow up with PCP. (4) Hypertension Priority: Secondary Status: Chronic Comments: Controlled with current medication. Follow up with PCP. Monitor blood pressure. Qualifiers: Hypertension type: unspecified Qualified Code(s): I10 - Essential (primary ) hypertension (5) Acute blood loss anemia Priority: Secondary Status: Acute Comments: Stable. Follow up with PCP. Hospital course: Ms. Arrieta is a 63 year old female discharging to home 2 daughters house with home health therapy. Patient denies concerns or issues at this time. Discharge discussed with: patient, family, nurse, social work - Time Spent with Patient Total time spent providing and/or coordinating discharge services: Greater than 30 minutes - Discharge Medications Home Medications: Atorvastatin [Lipitor] 80 mg PO HS 11/26/17 [History] Omeprazole [PriLOSEC] 20 mg PO DAILY 11/26/17 [History] Phos-NaK [Neutra-Phos] 2 each PO BID #120 powd.pack 11/30/17 [Rx] Potassium Chloride 20 meq PO BID #60 tab.er.prt 11/30/17 [Rx] Sodium Bicarbonate 650 mg PO TID #180 tablet 11/30/17 [Rx] Lactulose 15 ml PO DAILY 02/20/18 [History] Magnesium Oxide [Mag-Ox] 400 mg PO TID 02/20/18 [History] Carvedilol [Coreg] 6.25 mg PO BIDWM tablet 03/13/18 [Rx] Chlordiazepoxide [Librium] 10 mg PO BID 5 Days #10 capsule 03/13/18 [Rx] Cholecalciferol (D-3) [Vitamin D] 1,000 unit PO DAILY tablet 03/13/18 [Rx] Ipratropium/Albuterol Neb [Duoneb] 3 ml IH [id number] inhsol 03/13/18 [Rx] Nicotine Patch [Nicoderm] 21 mg TD DAILY patch.td24 03/13/18 [Rx] Thiamine (B-1) [Vitamin B-1] 100 mg PO 1800 tablet 03/13/18 [Rx] Warfarin perPT [Coumadin perPT] 1 each PO DAILY@1800 PRN each 03/13/18 [Rx] Citalopram [CeleXA] 20 mg PO DAILY 14 Days #14 tablet 04/03/18 [Rx] DiphenhydraMINE [Benadryl] 25 mg PO Q8HR PRN capsule 04/03/18 [Rx] Magnesium Oxide [Mag-Ox] 400 mg PO BID #28 tablet 04/03/18 [Rx] Allergies/Adverse Reactions: 3 Allergy/AdvReac Type Severity Reaction Status Date / Time No Known Allergies Allergy Verified 02/20/18 18:06 Date of admission: 03/14/18 13:58 Primary care physician: Chiquita Colunga CNP Consults: 03/14/18 14:21 Consult to Occupational Therapy [CONS] Routine Comment: eval Reason for Consult: eval Does patient have active BEDREST order?: No Is patient medically & hemodynamically stable?: Yes Consult to Physical Therapy [CONS] Routine Comment: eval Reason for Consult: eval Does patient have active BEDREST order?: No Is patient medically & hemodynamically stable?: Yes Consult to Press Helper [CONS] Routine Reason for SW Consult: d/c planning 03/14/18 14:26 Consult to Speech Therapy [CONS] Routine Comment: Evaluate, develop and implement POC Reason for Consult: on altered diet Call Completed: Yes 03/19/18 15:08 Consult to Recreational Therapy [CONS] Routine Comment: 03/27/18 12:51 Consult to Physical Medicine/Rehab [CONS] Routine Reason for Consult: unsteady gait Call Completed: Yes Discharging clinician: Sami Duenas Anticipated date of discharge: 04/03/18 - Constitutional Vitals: Temp Pulse Resp BP Pulse Ox 98.3 F 66 16 155/65 98 04/03/18 07:01 04/03/18 07:01 04/03/18 07:01 04/03/18 07:01 04/03/18 07:01 General appearance: Present: cooperative, A&O X 3, pleasant, answers questions appropriately - Head Head exam: Present: atraumatic, normocephalic - Eye Eye exam: Present: PERRL, conjuntiva pink, sclera anicteric Pupils: Present: PERRL - Neck Neck exam general surgery: Present: supple, trachea midline. Absent: lymphadenopathy - Respiratory Respiratory exam: Present: CTAB. Absent: accessory muscle use, rales, rhonchi, wheezes - Cardiovascular Cardiovascular exam: Present: RRR, +S1, +S2. Absent: diastolic murmur, gallop, rubs, systolic murmur - GI/Abdominal GI/Abdominal exam: Present: normal bowel sounds, soft, no peritoneal signs. Absent: distended, tenderness - Extremities Exam Extremities exam: Present: warm, radial pulses palpable and symmetrical. Absent : calf tenderness, cyanotic, pedal edema - Neurological Exam Neurological exam: Present: CN II-XII intact, oriented X3, no focal deficits. Absent: pronater drift, facial droop, speech deficit - Skin Skin exam: Present: dry, intact - Patient Status Disposition: Home Health Service Condition: Good Functional capacity at discharge: independent ambulation Overall status at discharge: patient is progressing back to baseline - Discharge Instructions Follow Up With: Chiquita Colunga CNP [Primary Care Provider] - Figueroa Sanchez [Partnered Physician] - 04/18/18 8:00 am - Diet and Activity Activity: as per physical therapy Diet: advance to your usual diet
[2018-04-03] MEDS ORDERED: *HR* Warfarin 3 MG TABLET PO ONE (18:00)
== END 2018-04-03 16:16 | disposition home health service (06) | DRG 945 ==
LOC: INPGRE 13:58